=== PATIENT | female | born 1950 | race Caucasian/White ===

== ENCOUNTER 2017-12-05 11:38 | Outpatient (CLI) | payer MEDICARE, BC ==
[2017-12-05 18:02] LABS: BASOPHILS % (AUTO) 0.9 %; EOSINOPHILS # (AUTO) 0.1 10^3/uL (0.0-0.7); EOSINOPHILS % (AUTO) 2.6 %; HGB - HEMOGLOBIN 10.6 g/dL (12.0-16.0); LYMPHOCYTES # (AUTO) 0.9 10^3/uL (1.5-3.5); MEAN CORPUSCULAR HEMOGLOBIN 27.3 pg (27.0-31.0); MEAN CORPUSCULAR HGB CONC 33.3 g/dL (32.0-36.0); MONOCYTES # (AUTO) 0.5 10^3/uL (0.0-1.0); MONOCYTES % (AUTO) 11.3 %; NEUTROPHILS # (AUTO) 2.8 10^3/uL (1.5-6.6); NEUTROPHILS % (AUTO) 65.2 %; PLT - PLATELET COUNT 108 10^3/uL (130-450); RED CELL DISTRIBUTION WIDTH 14.8 % (12.0-15.0); WHITE BLOOD COUNT 4.3 x10^3/uL (4.8-10.8)
[2017-12-05 18:04] LABS: ALBUMIN 4.2 g/dL (3.2-5.5); ALBUMIN/GLOBULIN RATIO 1.4 (1.0-2.2); BILIRUBIN,TOTAL 0.5 mg/dL (0.2-1.0); CALCIUM 9.2 mg/dL (8.5-10.3); CREATININE 0.9 mg/dL (0.4-1.0); TOTAL PROTEIN 7.2 g/dL (6.7-8.2)
== END 2017-12-05 11:39 | disposition home or self-care (01) ==
LOC: LAB.F 11:38
DX: C54.9 Malignant neoplasm of corpus uteri, unspecified (principal)
CPT/HCPCS: 36415; 80053; 83615; 85025; 86304

== ENCOUNTER 2018-01-03 13:29 | Outpatient (CLI) | payer MEDICARE, BC ==
[2018-01-03 17:58] LABS: ALBUMIN 3.6 g/dL (3.2-5.5); BILIRUBIN,TOTAL 0.3 mg/dL (0.2-1.0); CALCIUM 9.2 mg/dL (8.5-10.3); CREATININE 0.9 mg/dL (0.4-1.0); TOTAL PROTEIN 7.2 g/dL (6.7-8.2)
== END 2018-01-03 13:30 | disposition home or self-care (01) ==
LOC: LAB.F 13:29
PROVIDERS: ATTEND Specialist
DX: C54.9 Malignant neoplasm of corpus uteri, unspecified (principal)
CPT/HCPCS: 36415; 80053; 83615; 85025; 86304

== ENCOUNTER 2018-02-15 16:28 | Outpatient (CLI) | payer MEDICARE, BC ==
--- NOTE | 2018-02-15 17:21 | XRAY Report ---
Procedure Date: 02/15/2018 Accession Number: [id number] / [id number] Procedure: XR - Chest 2 View X-Ray CPT Code: 00219 FULL RESULT: EXAM: CHEST RADIOGRAPHY EXAM DATE: 02/15/2018 04:40 PM. CLINICAL HISTORY: Cough. COMPARISON: None. TECHNIQUE: 2 views. FINDINGS: Lungs/Pleura: There are patchy opacities within the lungs. There are bilateral pleural effusions. There is no evidence of pneumothorax. Mediastinum: Heart size is within normal limits. There is thoracic aortic tortuosity. Other: None. IMPRESSION: 1. There are patchy opacities within the periphery of the lungs. Differential considerations include infectious pneumonia, eosinophilic pneumonia, or organizing pneumonia. CT could be used for further evaluation as indicated. 2. There are bilateral pleural effusions. 3. There is no evidence of pneumothorax. RADIA
== END 2018-02-15 16:29 | disposition home or self-care (01) ==
LOC: DI 16:28
PROVIDERS: ATTEND Nurse Practitioner Family
DX: R91.8 Other nonspecific abnormal finding of lung field (principal); J90 Pleural effusion, not elsewhere classified
CPT/HCPCS: 71046

== ENCOUNTER 2018-03-07 11:03 | Emergency (ER) | payer MEDICARE, BC ==
--- NOTE | 2018-03-07 13:29 | ED Physician Documentation ---
PD HPI DYSPNEA - Stated complaint Stated Complaint: SOA,COUGHING UP PHLEM, - Chief complaint Chief Complaint: Resp - History obtained from History obtained from: Patient, Family (), Other (records review) - History of Present Illness Timing - onset: Other (This is a 67-year-old and has been on chemotherapy for the last 4 years. A year ago she had UTI with sepsis and a prolonged hospitalization. 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 She was on a variety of antibiotics, there was initial one which they do not remember, than steroids, then Augmentin, now 3 weeks. She has has a cough productive of clear sputum and shortness of breath with exertion but no orthopnea and increased pedal edema. For the last 3 weeks she has been on Levaquin, at that time, she had a chest x-ray here showing patchy opacities within the periphery of the lungs with a wide differential diagnosis and she also had bilateral pleural effusions. 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 - Social History Does the pt smoke?: No Does the pt drink ETOH?: No Does the pt have substance abuse?: No - Family History Family history: reports: Non contributory PD ED PE NORMAL - Vitals Vital signs reviewed: Yes (Tachycardic) - General General: Alert and oriented X 3, No acute distress - HEENT HEENT: PERRL, EOMI - Neck Neck: Supple, no meningeal sign, No bony TTP - Cardiac Cardiac: RRR, No murmur - Respiratory Respiratory: No respiratory distress, Other (Coarse crackles throughout especially the bases.) - Abdomen Abdomen: Soft, Non tender - Rectal Rectal: Other (Dark but guaiac neg stool) - Back Back: No CVA TTP, No spinal TTP - Derm Derm: Normal color, Warm and dry - Extremities Extremities: No calf tenderness / cord, Other (2-3+ pitting pedal edema which is symmetric) - Neuro Neuro: Alert and oriented X 3, Normal speech Results - Vitals Vitals: Vital Signs - 24 hr 03/07/18 03/07/18 03/07/18 11:08 13:51 15:26 Temperature 36.0 C L Heart Rate 119 H 115 H 90 Respiratory 20 18 22 Rate Blood Pressure 141/112 H 151/84 H 166/89 H O2 Saturation 97 99 100 03/07/18 03/07/18 03/07/18 16:13 16:39 16:41 Temperature Heart Rate 118 H 101 H 97 Respiratory 22 24 22 Rate Blood Pressure 168/90 H 153/87 H 152/81 H O2 Saturation 98 97 96 Oxygen O2 Source Room air - EKG (time done) 1110 Rate: Rate (enter#) (120) Rhythm: Sinus tachycardia (with PACs) [place]: Normal Intervals: Normal ME QRS: Normal Computer interpretation: Agree with computer 1618 Rate: Rate (enter#) (116) Rhythm: Sinus tachycardia [place]: Normal Intervals: Normal ME QRS: Normal Ischemia: Non specific changes Computer interpretation: Agree with computer - Labs Labs: Laboratory Tests 03/07/18 03/07/18 03/07/18 15:15 15:15 15:15 WBC 4.7 L RBC 2.92 L Hgb 6.8 L* Hct 21.1 L MCV 72.5 L MCH 23.3 L MCHC 32.1 RDW 21.1 H Plt Count 148 MPV 7.3 L Neut # (Auto) 3.4 Lymph # (Auto) 0.7 L [place] # (Auto) 0.5 Eos # (Auto) 0.1 Baso # (Auto) 0.0 Absolute Nucleated RBC 0.00 Nucleated RBC % 0.0 Manual Slide Review Indicated WBC Morphology NORMAL APPEARANCE Platelet Estimate NORMAL (130-450,000) Platelet Morphology NORMAL APPEARANCE RBC Morph Micro Appear SPHEROCYTES Sodium 134 L Potassium 3.0 L Chloride 101 Carbon Dioxide 22 Anion Gap 11.0 BUN 20 Creatinine 1.1 H Estimated GFR (MDRD) 49 L Glucose 98 Calcium 8.7 Total Bilirubin 0.5 AST 32 ALT 25 Alkaline Phosphatase 59 Total Creatine Kinase 72 CK-MB (CK-2) 3.0 Troponin I 0.65 H* B-Natriuretic Peptide Total Protein 6.4 L Albumin 2.7 L Globulin 3.7 Albumin/Globulin Ratio 0.7 L Lipase 14 L 03/07/18 15:15 WBC RBC Hgb Hct MCV MCH MCHC RDW Plt Count MPV Neut # (Auto) Lymph # (Auto) [place] # (Auto) Eos # (Auto) Baso # (Auto) Absolute Nucleated RBC Nucleated RBC % Manual Slide Review WBC Morphology Platelet Estimate Platelet Morphology RBC Morph Micro Appear Sodium Potassium Chloride Carbon Dioxide Anion Gap BUN Creatinine Estimated GFR (MDRD) Glucose Calcium Total Bilirubin AST ALT Alkaline Phosphatase Total Creatine Kinase CK-MB (CK-2) Troponin I B-Natriuretic Peptide 870 H Total Protein Albumin Globulin Albumin/Globulin Ratio Lipase - Rads (name of study) CT Chest Radiology: EMP read contemporaneously (Bilateral alveolar peripheral patchy consolidation which could be BOOPs, bronchopneumonia, drug reaction or interstitial pneumonia. Very small left and trace right pleural effusions and some mild bronchiectasis.) Procedures - General procedure General procedure: She was difficult for vascular access, I personally casandra her blood using real- time ultrasound guidance from the right AC. Later when her labs were resulted it was clear that she would need IV access, I tried and failed in the right upper extremity. I was able to place a 20-gauge IV in the right external jugular after ChloraPrep which casandra and flushed well. PD MEDICAL DECISION MAKING - ED course ED course: This is a 68-year-old in the setting of chemotherapy treatment for cancer and has failed outpatient treatment with antibiotics with CT as shown with wide differential diagnosis could be a bacterial pneumonia, Boop. Lab work is notable for low hemoglobin, guaiac negative. She also has an indeterminant troponin. Given the complex nature of her problems and potential need for multispecialty input including cardiology and pulmonology which we do not have available here I called [facility] for potential transfer at 4:20 PM. She was accepted by Dr. Saab the hospitalist there at [facility]. She does want us to do blood cultures which we will try and get, cefepime and vancomycin were ordered at her request. She does need blood before she is transferred. Cobras were completed. The family was agreeable. - Sepsis Event Vital Signs: Vital Signs - 24 hr 03/07/18 03/07/18 03/07/18 11:08 13:51 15:26 Temperature 36.0 C L Heart Rate 119 H 115 H 90 Respiratory 20 18 22 Rate Blood Pressure 141/112 H 151/84 H 166/89 H O2 Saturation 97 99 100 03/07/18 03/07/18 03/07/18 16:13 16:39 16:41 Temperature Heart Rate 118 H 101 H 97 Respiratory 22 24 22 Rate Blood Pressure 168/90 H 153/87 H 152/81 H O2 Saturation 98 97 96 Oxygen O2 Source Room air Departure - Departure Disposition: 02 Transfer Acute Care Hosp Clinical Impression: NSTEMI (non-ST elevated myocardial infarction) Pneumonia Qualifiers: Pneumonia type: due to unspecified organism Laterality: bilateral Lung location : unspecified part of lung Qualified Code(s): J18.9 - Pneumonia, unspecified organism Anemia Qualifiers: Anemia type: unspecified type Qualified Code(s): D64.9 - Anemia, unspecified Condition: Serious
--- NOTE | 2018-03-07 14:03 | CT Report ---
Procedure Date: 03/07/2018 Accession Number: [id number] / [id number] Procedure: CT - Chest W/O CPT Code: FULL RESULT: EXAM: CT CHEST EXAM DATE: 03/07/2018 01:50 PM. CLINICAL HISTORY: Abn chest xray cough fever. COMPARISONS: None. TECHNIQUE: Routine helical CT imaging was performed through the chest. IV contrast: None. Reconstructions: Coronal and sagittal. In accordance with CT protocol optimization, one or more of the following dose reduction techniques were utilized for this exam: automated exposure control, adjustment of mA and/or KV based on patient size, or use of iterative reconstructive technique. FINDINGS: Lungs/Pleura: There is a symmetric pattern of bilateral peribronchovascular consolidation. There are peripheral air bronchograms. There are adjacent groundglass densities. There is a component of architectural distortion with mild bronchiectasis in the lingula and right lower lobe. There is a very small left and trace right pleural effusion. Mediastinum: The heart size is normal. There is no pericardial effusion. No mediastinal lymphadenopathy. Bones: Unremarkable. Visualized Abdomen: Unremarkable. Other: None. IMPRESSION: 1. Bilateral alveolar peripheral patchy consolidation. Differential diagnosis includes bilateral bronchopneumonia, bronchiolitis obliterans organizing pneumonia, drug reaction or acute interstitial pneumonia. 2. Very small left and trace right pleural effusion. 3. A mild amount of bronchiectasis is present RADIA
[2018-03-07 15:31] LABS: BASOPHILS % (AUTO) 0.7 %; EOSINOPHILS # (AUTO) 0.1 10^3/uL (0.0-0.7); EOSINOPHILS % (AUTO) 1.3 %; LYMPHOCYTES # (AUTO) 0.7 10^3/uL (1.5-3.5); LYMPHOCYTES % (AUTO) 14.2 %; MEAN CORPUSCULAR HEMOGLOBIN 23.3 pg (27.0-31.0); MEAN CORPUSCULAR HGB CONC 32.1 g/dL (32.0-36.0); MEAN CORPUSCULAR VOLUME 72.5 fL (81.0-99.0); MEAN PLATELET VOLUME 7.3 fL (7.9-10.8); MONOCYTES # (AUTO) 0.5 10^3/uL (0.0-1.0); MONOCYTES % (AUTO) 10.3 %; NEUTROPHILS # (AUTO) 3.4 10^3/uL (1.5-6.6); NEUTROPHILS % (AUTO) 73.5 %; PLT - PLATELET COUNT 148 10^3/uL (130-450); RED BLOOD COUNT 2.92 10^6/uL (4.20-5.40); RED CELL DISTRIBUTION WIDTH 21.1 % (12.0-15.0); WHITE BLOOD COUNT 4.7 x10^3/uL (4.8-10.8)
[2018-03-07 15:37] LABS: HGB - HEMOGLOBIN 6.8 g/dL (12.0-16.0)
[2018-03-07 15:38] LABS: ALBUMIN 2.7 g/dL (3.2-5.5); ALBUMIN/GLOBULIN RATIO 0.7 (1.0-2.2); BILIRUBIN,TOTAL 0.5 mg/dL (0.2-1.0); CALCIUM 8.7 mg/dL (8.5-10.3); CREATININE 1.1 mg/dL (0.4-1.0); TOTAL PROTEIN 6.4 g/dL (6.7-8.2)
[2018-03-07 15:50] LABS: PLATELET ESTIMATE, MANUAL NORMAL (130-450,000) (NORMAL); PLATELET MORPHOLOGY NORMAL APPEARANCE (NORMAL)
[2018-03-07] MEDS ORDERED: ASPIRIN CHEW 81 MG TABLET PO STA (16:14)
[2018-03-07] MEDS ORDERED: METOPROLOL 5 MG/5 ML VIAL IVP STA (16:14)
[2018-03-07] MEDS ORDERED: POTASSIUM BICARB 25 MEQ TABLET PO STA (16:38)
[2018-03-07] MEDS ORDERED: VANCOMYCIN INJ 1 GM in SODIUM CHLORIDE 0.9% 500 ML IV STA (16:39)
[2018-03-07] MEDS ORDERED: CEFEPIME 2 GM in SODIUM CHLORIDE 0.9% MINIBAG 100 ML IV STA (16:39)
[2018-03-07 18:01] VITALS: BP 167/86
[2018-03-07 22:51] LABS: TROPONIN I 0.65 ng/mL (<0.49)
== END 2018-03-07 18:20 | disposition short-term general hospital (02) ==
LOC: ED 11:03
DX: I21.4 Non-ST elevation (NSTEMI) myocardial infarction (principal); J18.9 Pneumonia, unspecified organism; D64.9 Anemia, unspecified; R00.0 Tachycardia, unspecified; C54.1 Malignant neoplasm of endometrium; Z92.21 Personal history of antineoplastic chemotherapy
CPT/HCPCS: 36415; 71250; 80053; 82550; 82553; 83690; 83880; 84484; 85025; 86850; 86900; 86901; 86920; 87040; 93005; 96365; 96366; 96375; 99284; A9270; J3370; P9016

== ENCOUNTER 2018-03-07 18:24 | Outpatient (CLI) | payer MEDICARE, BC | END 2018-03-07 18:25 | disposition short-term general hospital (02) | LOC: EMS 18:24 | PROVIDERS: ATTEND Surgery | DX: I21.4 Non-ST elevation (NSTEMI) myocardial infarction (principal); R06.00 Dyspnea, unspecified; R05 Cough | CPT/HCPCS: A0170; A0425; A0426 ==

== ENCOUNTER 2018-05-28 11:29 | Outpatient (CLI) | payer MEDICARE, BC | END 2018-05-28 11:30 | disposition home or self-care (01) | LOC: DI 11:29 | PROVIDERS: ATTEND Internal Medicine Cardiovascular Disease | DX: I50.9 Heart failure, unspecified (principal) | CPT/HCPCS: 93306 ==

== ENCOUNTER 2019-04-03 11:49 | Inpatient (IN) | payer MEDICARE, BC ==
[2019-04-03] MEDS ORDERED: SODIUM CHLORIDE 0.9% 1,000 ML IV ONE ×2 (13:28→15:50)
--- NOTE | 2019-04-03 13:44 | ED Physician Documentation ---
History of Present Illness - Stated complaint Stated Complaint: FEMALE - Chief complaint Chief Complaint: General - History obtained from History obtained from: Patient, Family () - Treatment prior to arrival Treatment prior to arrival: doxycycline - Additonal information Additional information: The patient is a 69-year-old female who presents with generalized weakness and decreased appetite. History is obtained mostly from her because both he and the patient prefer that he do the talking. He reports that 10 days ago she was diagnosed with a "raging UTI." She was treated with ciprofloxacin for 1 week with no improvement of her symptoms. She was seen by her Oncologist, Dr. Mauricio, 3 days ago when it was found that the urine culture revealed resistance to ciprofloxacin. She was changed to doxycycline at that time. She has been on doxycycline for the past 3 days, but her is concerned that she is not improving. She denies fever, abdominal pain, nausea, vomiting, or dysuria. She has chronic shortness of breath, and underwent thoracentesis for right pleural effusion at [facility] two weeks ago. She has history of endometrial cancer with liver metastases, for which she is on chemotherapy. She has history of DVT diagnosed in January 2019, after which she underwent IVC filter placement. She is currently on Xarelto. Review of Systems Constitutional: reports: Fatigue. denies: Fever Nose: denies: Congestion Throat: denies: Sore throat Cardiac: denies: Chest pain / pressure Respiratory: reports: Dyspnea (Chronically). denies: Cough GI: denies: Abdominal Pain, Nausea, Vomiting : denies: Dysuria Skin: denies: Rash Musculoskeletal: denies: Back pain Neurologic: reports: Generalized weakness. 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) - Past Surgical History Cardiovascular: Coronary stent - Present Medications Home Medications: Ambulatory Orders Medication Instructions Recorded Confirmed Everolimus [Afinitor] 2.5 mg PO DAILY 03/07/18 04/01/19 Furosemide [Lasix] 20 mg PO DAILY 03/07/18 04/01/19 Letrozole 2.5 mg PO DAILY 03/07/18 04/01/19 Losartan [Cozaar] 100 mg PO DAILY 03/07/18 04/01/19 metFORMIN [Glucophage] 500 mg PO BID 03/07/18 04/01/19 - Allergies Allergies/Adverse Reactions: Allergies Allergy/AdvReac Type Severity Reaction Status Date / Time No Known Drug Allergies Allergy Verified 04/03/19 11:58 - Living Situation Living Situation: reports: With spouse/s.o. - Social History Does the pt smoke?: No Smoking Status: Never smoker Does the pt drink ETOH?: No Does the pt have substance abuse?: No PD ED PE NORMAL - Vitals Vital signs reviewed: Yes (Mildly tachycardic.) - General General: Alert and oriented X 3, Other (Chronically debilitated appearing.) - HEENT HEENT: Atraumatic, EOMI, Pharynx benign - Neck Neck: No adenopathy, No JVD - Cardiac Cardiac: RRR - Respiratory Respiratory: No respiratory distress, Other (Decreased breath sounds at the right base.) - Abdomen Abdomen: Soft, Non tender - Back Back: No CVA TTP - Derm Derm: No rash - Extremities Extremities: No edema, No calf tenderness / cord - Neuro Neuro: Alert and oriented X 3, No motor deficit, Other (Generalized weakness, without focal motor deficit detected.) Results - Vitals Vitals: Vital Signs - 24 hr 04/03/19 04/03/19 04/03/19 11:52 14:27 16:30 Temperature 36.7 C Heart Rate 112 H 98 85 Respiratory 18 15 25 H Rate Blood Pressure 103/71 114/77 115/71 O2 Saturation 93 99 95 Oxygen O2 Source Room air - Labs Labs: Laboratory Tests 04/03/19 04/03/19 04/03/19 14:20 14:20 14:20 WBC 12.8 H RBC 3.63 L Hgb 11.4 L Hct 35.6 L MCV 98.1 MCH 31.4 H MCHC 32.0 RDW 17.8 H Plt Count 69 L MPV 12.3 H Neut # (Auto) 11.5 H Lymph # (Auto) 0.4 L [place] # (Auto) 0.8 Eos # (Auto) 0.0 Baso # (Auto) 0.0 Absolute Nucleated RBC 0.00 Nucleated RBC % 0.0 Sodium 134 L Potassium 4.0 Chloride 100 L Carbon Dioxide 20 L Anion Gap 14.0 H BUN 53 H Creatinine 1.7 H Estimated GFR (MDRD) 30 L Glucose 137 H Lactic Acid 1.7 Calcium 8.9 Total Bilirubin 0.5 AST 69 H ALT 53 Alkaline Phosphatase 445 H Total Protein 6.5 L Albumin 2.9 L Globulin 3.6 Albumin/Globulin Ratio 0.8 L Lipase 23 Urine Color Urine Clarity Urine pH Ur Specific [place] Urine Protein Urine Glucose (UA) Urine Ketones Urine Occult Blood Urine Nitrite Urine Bilirubin Urine Urobilinogen Ur Leukocyte Esterase Urine RBC Urine WBC Ur Squamous Epith Cells Urine Bacteria Ur Microscopic Review Urine Culture Comments 04/03/19 15:12 WBC RBC Hgb Hct MCV MCH MCHC RDW Plt Count MPV Neut # (Auto) Lymph # (Auto) [place] # (Auto) Eos # (Auto) Baso # (Auto) Absolute Nucleated RBC Nucleated RBC % Sodium Potassium Chloride Carbon Dioxide Anion Gap BUN Creatinine Estimated GFR (MDRD) Glucose Lactic Acid Calcium Total Bilirubin AST ALT Alkaline Phosphatase Total Protein Albumin Globulin Albumin/Globulin Ratio Lipase Urine Color YELLOW Urine Clarity CLOUDY Urine pH 6.0 Ur Specific [place] 1.020 Urine Protein TRACE Urine Glucose (UA) NEGATIVE Urine Ketones NEGATIVE Urine Occult Blood SMALL H Urine Nitrite NEGATIVE Urine Bilirubin NEGATIVE Urine Urobilinogen 0.2 (NORMAL) Ur Leukocyte Esterase NEGATIVE Urine RBC 0-5 Urine WBC 6-10 H Ur Squamous Epith Cells RARE Squamous Urine Bacteria Many H Ur Microscopic Review INDICATED Urine Culture Comments INDICATED Procedures - General procedure General procedure: Right EJ IV placement: Because of unsuccessful attempts at peripheral IV access by the nurses, and history of similar difficulty getting IV access in the past, I was asked to place an IV. The patient does have a good right external jugular vein, which I was able to cannulate without difficulty under sterile technique using an 18-gauge Angiocath. PD MEDICAL DECISION MAKING - ED course Complexity details: reviewed old records, reviewed results, re-evaluated patient, considered differential, d/w patient, d/w family, d/w optimization consultant ED course: The patient's presentation is significant for dehydration associated with poor oral intake, and partially treated urinary tract infection. Her BUN and creatinine are elevated at 53 and 1.7, with her recent previous BUN and creatinine being 42 and 1.6. She has been treated with outpatient antibiotic therapy for urinary tract infection, including one week of Cipro, to which the organism was resistant, followed by the last 3 days on doxycycline. With her history of endometrial cancer, she is scheduled for further chemotherapy on Sunday, 4 days from now. Treatment in the emergency department included administration of normal saline 1 L IV and ceftriaxone 1 g IV. I discussed her condition with her oncologist, Tatyana Mauricio, who suggests that she be hospitalized for rehydration and IV antibiotic therapy in an effort to improve her medical condition and thrombocytopenia heading into planned chemotherapy 4 days from now. I discussed her condition with Dr. Baldwin who accepts her for further evaluation and treatment. Departure - Departure Disposition: [facility] DC/Xfer Clinical Impression: Dehydration, Endometrial cancer, Thrombocytopenia UTI (urinary tract infection) Qualifiers: Urinary tract infection type: acute cystitis Hematuria presence: without hematuria Qualified Code(s): N30.00 - Acute cystitis without hematuria Condition: Stable Discharge Date/Time: 04/03/19 19:34
[2019-04-03 14:30] LABS: BASOPHILS % (AUTO) 0.2 %; HGB - HEMOGLOBIN 11.4 g/dL (12.0-16.0); LYMPHOCYTES # (AUTO) 0.4 10^3/uL (1.5-3.5); LYMPHOCYTES % (AUTO) 2.7 %; MEAN CORPUSCULAR HEMOGLOBIN 31.4 pg (27.0-31.0); MEAN CORPUSCULAR VOLUME 98.1 fL (81.0-99.0); MEAN PLATELET VOLUME 12.3 fL (7.9-10.8); MONOCYTES # (AUTO) 0.8 10^3/uL (0.0-1.0); MONOCYTES % (AUTO) 6.5 %; NEUTROPHILS # (AUTO) 11.5 10^3/uL (1.5-6.6); NEUTROPHILS % (AUTO) 89.7 %; PLT - PLATELET COUNT 69 10^3/uL (130-450); RED BLOOD COUNT 3.63 10^6/uL (4.20-5.40); RED CELL DISTRIBUTION WIDTH 17.8 % (12.0-15.0); WHITE BLOOD COUNT 12.8 x10^3/uL (4.8-10.8)
[2019-04-03 14:44] LABS: ALBUMIN 2.9 g/dL (3.2-5.5); ALBUMIN/GLOBULIN RATIO 0.8 (1.0-2.2); BILIRUBIN,TOTAL 0.5 mg/dL (0.2-1.0); CALCIUM 8.9 mg/dL (8.5-10.3); CREATININE 1.7 mg/dL (0.4-1.0); TOTAL PROTEIN 6.5 g/dL (6.7-8.2)
[2019-04-03 15:23] LABS: BILIRUBIN,URINE NEGATIVE (NEGATIVE); GLUCOSE, URINE (UA) NEGATIVE (NEGATIVE); KETONES,URINE (UA) NEGATIVE (NEGATIVE); LEUKOCYTE ESTERASE, URINE NEGATIVE (NEGATIVE); NITRITE,URINE NEGATIVE (NEGATIVE); OCCULT BLOOD,URINE SMALL (NEGATIVE); PROTEIN,URINE TRACE mg/dL (NEGATIVE); UROBILINOGEN,URINE 0.2 (NORMAL) E.U./dL (NORMAL)
[2019-04-03 15:33] LABS: CLARITY,URINE CLOUDY (CLEAR)
[2019-04-03 15:36] LABS: BACTERIA,URINE Many /HPF (None Seen); RBC,URINE 0-5 /HPF (0-5); SQUAMOUS EPITHELIAL CELL,UR RARE Squamous (<= Few)
[2019-04-03] MEDS ORDERED: cefTRIAXone 1 GM in SODIUM CHLORIDE 0.9% MINIBAG 100 ML IV STA (15:48)
[2019-04-03] MEDS ORDERED: PROCHLORPERAZINE 10 MG/2 ML VIAL IVP PRN (17:08)
[2019-04-03] MEDS ORDERED: HYDROmorphone 0.5 MG/0.5 ML SYRINGE IVP PRN (17:08)
[2019-04-03] MEDS ORDERED: ACETAMINOPHEN 325 MG TABLET PO PRN (17:08)
[2019-04-03] MEDS: DEXTROSE 5%-0.9% NACL 1,000 ML IV SCH (19:32)
--- NOTE | 2019-04-03 20:02 | HISTORY & PHYSICAL EXAMINATION ---
DATE OF SERVICE: 04/03/2019 Physician: Silvina Baldwin MD HISTORY OF PRESENT ILLNESS: This is a 69-year-old white female who has a history of endometrial cancer for which she has been getting chemotherapy. There is also a history of hypertension, DVT twice with an IV filter and Xarelto use, coronary artery disease with NSTEMI in March 2018 for which she received a stent. Patient was in [facility] getting a pleural effusion thoracentesis done about 2 weeks ago. She was diagnosed there with a UTI. She was started on Cipro. She went to see her Oncologist who found that the urine culture had bacterial growth that was resistant to Cipro, and she was changed to Doxycycline, which the bacteria was sensitive to, that she has been on now for approximately 3 days. She has continued to have very poor appetite, not even forcing herself to drink, has marked weakness and mostly is in bed all day, is too weak to get dressed or do other ADLs, and was brought to the emergency room by her today. Patient denies any fever, nausea, vomiting, diarrhea or dysuria. She has mild chronic shortness of breath, which has not changed. The emergency room spoke to her Oncologist, Dr. Mauricio, who advised that she be admitted for IV fluids and IV antibiotics, since there is a plan to proceed with an upcoming course of chemotherapy 04/07/2019, which is in 5 days. PAST MEDICAL HISTORY 1. Endometrial cancer with metastasis to the liver, on chemotherapy. Recent chemotherapy resulted in pancytopenia. 2. History of coronary artery disease with NSTEMI in 03/2018 and she received a stent. 3. Recent pleural effusion, tapped at 2 weeks ago. 4. Hypertension. 5. Deep venous thrombosis, twice, with vena caval filter and on Xarelto. 6. History of Pneumocystis carinii pneumonia. 7. History of prior UTI, and this recent UTI diagnosed 14 days ago, which she has had incomplete treatment of because of resistance to the antibiotic that was chosen. ALLERGIES: NONE. MEDICATIONS 1. Aspirin 81 mg daily 2. Lipitor 40 mg qhs 3. Lisonopril 10 mg daily 4. Cimetidine 20 mg daily 5. Trim/HCTZ 25 mg daily 6. Toprol 50 mg daily 7. Prednisone 10 mg daily 8. Xarelto 15 mg daily in am 9. recent Doxycycline 100 mg bid 10. Many vitamin supplements: vit C, vit B12, Folate, Iron, CBD tincture, vit B6, Biotin, Pantothenic acid, Magnesium 500 mg daily, Calcium 500 mg daily, Malic acid, and MOV with minerals FAMILY HISTORY: Noncontributory. SOCIAL HISTORY: Patient is a nonsmoker, who never smoked, drinks rare alcohol (2 wine/week). Lives with her . REVIEW OF SYSTEMS: She used to have an Oncologist in [place] who prescribed chemo based on killing analysis of her cancer specimens, but they currently live in [place], [place] and she more recently had an [place] Oncologist and now [address] Mauricio of [facility]. A comprehensive review of systems was done and the pertinent positives are listed. The rest are negative. PHYSICAL EXAMINATION GENERAL: Chronically ill-appearing white female. VITAL SIGNS: Blood pressure 115/71, pulse 85, but in the emergency room it was in sinus tachycardia at 112, afebrile, room air saturation 99%. HEENT: Reveals dry oral mucosa. She appears pale and tired. NECK: Without JVD. LUNGS: Diminished breath sounds at the right base, but otherwise clear and no wheezing. HEART: Distant heart sounds. No audible murmur. ABDOMEN: Soft, nontender. Normal bowel sounds. No organomegaly. No tenderness. EXTREMITIES: 1+ ankle edema. No clubbing or cyanosis. NEUROLOGIC: Grossly intact. LABORATORY DATA: Sodium 134, potassium 4.0, anion gap 14, BUN 53, creatinine 1.7. Her usual creatinine is 1.1. Lactic acid 1.7, glucose 137, AST 69, ALT 53, alkaline phosphatase 445. Albumin 2.9. Lipase normal. White blood count 12.8 with a left shift of neutrophils 11.5%. Hemoglobin is 11.5 with MCV 98, platelet count low at 69. No INR was done. Urinalysis shows small occult blood, high white blood cells and many bacteria. No chest x-ray was done. No EKG was done. An Echo done 1 year ago shows an LVEF mildly depressed at 50%, mild-moderate aortic insufficiency and normal PA pressure. IMPRESSION/DIAGNOSES 1. Urinary tract infection, under treated by the previous oral antibiotics. 2. Acute kidney injury. 3. Endometrial cancer. 4. Pancytopenia from chemotherapy. 5. Coronary artery disease with an myocardial infarction 1 year ago with coronary stenting. 6. History of hypertension. 7. History of deep venous thrombosis of lower extremities. 8. Pleural effusion, recent, with etiology unknown. 9. Weakness, probably multifactorial. PLAN: Admit the patient to a medical/surgical bed. Urine culture was resent when in the ER. Obtain blood culture if she spikes a fever. IV ceftriaxone was started in the ER and will be continued by IV, then adjusted to focused antibiotics based on identification and sensitivities. Begin IV hydration using D5 NS. Start a full liquid diet and advance the diet as her appetite improves. Follow her BMP and CBC daily. Continue with her home medications other than the Lasix. The INR will be inaccurate/unreliable in a patient on a DOAC, therefore not needed. Obtain the microbiology result of the abnormal urine culture from the other hospital. Obtain the pathology report from the thoracentesis from to determine if there were malignant cells or an infection, which may help guide management. CODE STATUS: FULL CODE. DEEP THROMBOSIS PROPHYLAXIS: SCDs and RONI stockings. ATTESTATION: The patient is expected to be discharged or transferred to another facility within 96 hours: Yes. TD: 04/03/2019 18:36 [place]
[2019-04-03] MEDS: INSULIN ASPART 300 UNIT/3 ML PEN SUBQ SCH (21:48)
[2019-04-03] MEDS: ATORVASTATIN 40 MG TABLET PO SCH (21:48)
[2019-04-04] MEDS: SODIUM CHLORIDE FLUSH 0.9% 10 ML SYRINGE IVP SCH ×4 (00:07→17:52)
[2019-04-04 04:55] LABS: BASOPHILS % (AUTO) 0.2 %; EOSINOPHILS % (AUTO) 0.4 %; HGB - HEMOGLOBIN 9.5 g/dL (12.0-16.0); LYMPHOCYTES # (AUTO) 0.6 10^3/uL (1.5-3.5); LYMPHOCYTES % (AUTO) 6.5 %; MEAN CORPUSCULAR HEMOGLOBIN 30.9 pg (27.0-31.0); MEAN CORPUSCULAR HGB CONC 31.8 g/dL (32.0-36.0); MEAN CORPUSCULAR VOLUME 97.4 fL (81.0-99.0); MEAN PLATELET VOLUME 11.9 fL (7.9-10.8); MONOCYTES # (AUTO) 0.9 10^3/uL (0.0-1.0); MONOCYTES % (AUTO) 10.1 %; NEUTROPHILS # (AUTO) 7.3 10^3/uL (1.5-6.6); NEUTROPHILS % (AUTO) 81.9 %; PLT - PLATELET COUNT 50 10^3/uL (130-450); RED BLOOD COUNT 3.07 10^6/uL (4.20-5.40); RED CELL DISTRIBUTION WIDTH 17.6 % (12.0-15.0)
[2019-04-04 05:09] LABS: ALBUMIN 2.2 g/dL (3.2-5.5); ALBUMIN/GLOBULIN RATIO 0.8 (1.0-2.2); BILIRUBIN,TOTAL 0.7 mg/dL (0.2-1.0); CREATININE 1.3 mg/dL (0.4-1.0); TOTAL PROTEIN 5.1 g/dL (6.7-8.2)
[2019-04-04] MEDS: DEXTROSE 5%-0.9% NACL 1,000 ML IV SCH ×2 (05:21→16:25)
[2019-04-04] MEDS: PANTOPRAZOLE 40 MG VIAL IVP SCH (06:07)
[2019-04-04] MEDS ORDERED: POTASSIUM CHLORIDE 20 MEQ TABLET PO SCH (06:43)
[2019-04-04] MEDS: INSULIN ASPART 300 UNIT/3 ML PEN SUBQ SCH (08:22)
[2019-04-04] MEDS: METOPROLOL SUCCINATE 50 MG TABLET PO SCH (09:23)
[2019-04-04] MEDS: cefTRIAXone 1 GM VIAL IVP SCH (09:23)
[2019-04-04] MEDS: POLYETHYLENE GLYCOL 3350 17 GM PACKET PO SCH (09:23)
[2019-04-04] MEDS: predniSONE 5 MG TABLET PO SCH (09:23)
[2019-04-04] MEDS: LOSARTAN 50 MG TABLET PO SCH ×2 (09:23→09:33)
[2019-04-04] MEDS: LETROZOLE 2.5 MG PO SCH (09:26)
[2019-04-04] MEDS: EVEROLIMUS PO SCH (09:26)
[2019-04-04] MEDS ORDERED: POTASSIUM CHLOR 10 MEQ/100 ML 10 MEQ/100 ML BAG IV SCH (12:00)
--- NOTE | 2019-04-04 13:05 | PROVIDER PROGRESS NOTE ---
Assessment/Plan - Problem List (1) UTI (urinary tract infection) Qualifiers: Urinary tract infection type: acute cystitis Hematuria presence: without hematuria Qualified Code(s): N30.00 - Acute cystitis without hematuria Assessment/Plan: This patient has undertreated bacterial urinary tract infection. I do not have the record from , of the bacteria that was identified or its sensitivities. Her U/A on presentation in the ER yesterday, still showed many bacteria After she had urine culture sent from the ER yesterday, Rocephin IV was started yesterday, and is continued now with this admission. Will attempt to obtain the microbiology report of the abnormal urine culture including ID and sensitivities from the other hospital. Await our urine culture results. (2) Dehydration Assessment/Plan: She was started on iv hydration at admission last evening. I suspect she is rhea ral Liters of fluid behind, since she had no fluid intake for 4 days, as per the history from the . The patient told me yesterday that she simply had no appetite and could not even force herself to drink Continue IV hydration. Follow BMP. A full liquid diet was started, promoting hydration was discussed with the patient, the was present (3) BETO (acute kidney injury) Assessment/Plan: The BUN/creatinine is improved from 59/1.7 at admission yesterday to 39/1.3 today after iv hydration started. Continue with this plan. Monitor BMP (4) Hypokalemia Assessment/Plan: Replace Monitor BMP daily. (5) Weakness generalized Assessment/Plan: This is likely multifactorial: From marked dehydration, persistent infection, pancytopenia especially the anemia, underlying malignancy. After 1-2 day of IV fluids, will check orthostatic vital signs and then order PT. (6) Poor appetite Assessment/Plan: Full liquid diet started, will advance as her diet as appetite improves. Will advance diet to soft She may need a nutrition consult for recommendations regarding increased protein and calorie intake (7) Pleural effusion Assessment/Plan: The history obtained yessterday, included information that she had a thoracentesis of a new pleural effusion 2 weeks ago at . The pathology report, protein and Gram stain are not available to me. She is not dyspneic, is able to lie falt without SOB. We will try to obtain the thoracentesis results, as it will guide therapy (8) Hx of essential hypertension Assessment/Plan: Her Lisinopril is on hold due to volume depletion and a low blood pressure even without BP meds (9) Endometrial cancer Assessment/Plan: The notes state that a round of chemotherapy is planned for 04/07/19, managed by Dr. Mauricio of [facility] clinic (10) Pancytopenia due to chemotherapy Assessment/Plan: This was noted by Dr. Mauricio in her note from 04/01/2019. Monitor CBC daily. Transfuse if hemoglobin less than 7 or she becomes symptomatic - Current Meds Current Meds: Current Medications Generic Name Dose Route Start Last Admin Trade Name Freq PRN Reason Stop Dose Admin Atorvastatin Calcium 40 mg 04/03/19 21:00 04/03/19 21:48 Lipitor PO 40 mg QPM JOHN Administration Ceftriaxone Sodium 1 gm 04/04/19 09:00 04/04/19 09:23 Rocephin IVP 1 gm DAILY JOHN Administration Dextrose/Sodium Chloride 1,000 mls @ 100 mls/hr 04/03/19 18:00 04/04/19 05:21 D5ns IV 100 mls/hr .Q10H JOHN Administration Metoprolol Succinate 50 mg 04/04/19 09:00 04/04/19 09:23 Toprol Xl PO 50 mg DAILY JOHN Administration Pantoprazole Sodium 40 mg 04/04/19 07:00 04/04/19 06:07 Protonix IVP 40 mg QDAC JOHN Administration (Everolimus [ 1 each 04/04/19 09:00 04/04/19 09:26 Afinitor] 2.5 Mg) PO Not Given Tab DAILY JOHN (Letrozole [ 1 each 04/04/19 09:00 04/04/19 09:26 Letrozole] 2.5 Mg) PO Not Given Tab DAILY JOHN Polyethylene Glycol 17 gm 04/04/19 09:00 04/04/19 09:23 Miralax PO 17 gm DAILY JOHN Administration Prednisone 10 mg 04/04/19 08:00 04/04/19 09:23 Deltasone PO 10 mg DAILYWM JOHN Administration Sodium Chloride 10 ml 04/04/19 01:00 04/04/19 07:45 Normal Saline Flush 0.9% IVP Not Given 0100,0900,1700 JOHN - Lab Result Fish Bone Diagrams: 04/04/19 04:30 04/04/19 04:30 - Additional Planning My Orders: My Active Orders 04/03/19 17:08 Activity Orders [RC] Q2HR IO [RC] IOSHIFT Initiate Bowel Care Protocol [RC] .protocol Initiate Line Care Protocol [RC] QSHIFT Initiate Personal Care Protoco [RC] .protocol Oxygen Therapy [RC] Routine Vital Signs [RC] 0800,1600,0000 Acetaminophen [Tylenol] 650 mg PO Q4HR PRN HYDROmorphone INJ SYRINGE [Dilaudid Inj Syringe] 0.5 mg IVP Q2H PRN Prochlorperazine Inj [Compazine Inj] 10 mg IVP Q6HR PRN Sodium Chloride Flush 0.9% [Normal Saline Flush 0.9%] 10 ml IVP PRN PRN Code Status [OTHERS] Routine Condition of Patient [OTHERS] Routine DVT Prophylaxis [OTHERS] Routine 04/03/19 17:10 Daily Weight [RC] 0600 IV Insert [RC] .ONCE 04/03/19 17:11 RONI Wright [RC] QSHIFT 04/03/19 17:12 Initiate Line Care Protocol [RC] QSHIFT 04/03/19 18:00 Dextrose 5%-0.9% NaCl [D5ns] 1,000 ml IV 100 mls/hr 04/04/19 01:00 Sodium Chloride Flush 0.9% [Normal Saline Flush 0.9%] 10 ml IVP 0100,0900,1700 04/04/19 07:00 Pantoprazole [Protonix] 40 mg IVP QDAC 04/04/19 09:00 Patient Own Med [Patient Own Medication] 1 each PO DAILY Patient Own Med [Patient Own Medication] 1 each PO DAILY Polyethylene Glycol 3350 [Miralax] 17 gm PO DAILY cefTRIAXone [Rocephin] 1 gm IVP DAILY 04/04/19 11:54 Miscellaenous Nursing Order [RC] ONCE 04/04/19 11:55 Miscellaenous Nursing Order [RC] ONCE 04/04/19 12:00 Potassium Chlor 10 Meq/100 ml [Potassium Chloride] 10 meq in 100 ml IV Q1H 04/05/19 05:00 CBC - COMP BLD CT W/AUTO DIFF [HEME] DAILYLAB CMP [COMPREHENSIVE METABOLIC PANEL] [CHEM] DAILYLAB 04/06/19 05:00 CBC - COMP BLD CT W/AUTO DIFF [HEME] DAILYLAB CMP [COMPREHENSIVE METABOLIC PANEL] [CHEM] DAILYLAB 04/07/19 05:00 CBC - COMP BLD CT W/AUTO DIFF [HEME] DAILYLAB CMP [COMPREHENSIVE METABOLIC PANEL] [CHEM] DAILYLAB Subjective - Subjective Patient Reports: Feeling Better, Resting Comfortably, No Complaints Objective Vital Signs: Vital Signs - 24 hr 04/03/19 04/03/19 04/03/19 14:27 16:30 17:12 Temperature 36.8 C Heart Rate 98 85 Heart Rate [ Brachial] Respiratory 15 25 H Rate Blood Pressure 114/77 115/71 Blood Pressure [Right Brachial artery] O2 Saturation 99 95 04/03/19 04/03/19 04/04/19 18:02 23:56 05:47 Temperature 36.3 C L 36.3 C L Heart Rate 85 87 Heart Rate [ 87 Brachial] Respiratory 22 16 16 Rate Blood Pressure 115/73 Blood Pressure 110/72 [Right Brachial artery] O2 Saturation 97 97 97 04/04/19 07:41 Temperature 36.3 C L Heart Rate Heart Rate [ 87 Brachial] Respiratory 16 Rate Blood Pressure Blood Pressure 113/68 [Right Brachial artery] O2 Saturation 100 Oxygen O2 Source Room air I&O (Last 24 Hrs): Intake and Output Totals x24h 04/02/19 04/03/19 04/04/19 23:59 23:59 23:59 Intake Total 2550 1231.667 Output Total 500 400 Balance 2050 831.667 General: Alert, Oriented x3 HEENT: Mucous membr. moist/pink, Other (Pale) Neck: Supple, No JVD Neuro: Non Focal Cardiovascular: Regular rate, No murmurs Respiratory: No respiratory distress Abdomen: Soft Extremities: No edema - Results Results: Laboratory Results WBC 9.0 x10^3/uL (4.8-10.8) 04/04/19 04:30 RBC 3.07 10^6/uL (4.20-5.40) L 04/04/19 04:30 Hgb 9.5 g/dL (12.0-16.0) L 04/04/19 04:30 Hct 29.9 % (37.0-47.0) L 04/04/19 04:30 MCV 97.4 fL (81.0-99.0) 04/04/19 04:30 MCH 30.9 pg (27.0-31.0) 04/04/19 04:30 MCHC 31.8 g/dL (32.0-36.0) L 04/04/19 04:30 RDW 17.6 % (12.0-15.0) H 04/04/19 04:30 Plt Count 50 10^3/uL (130-450) L 04/04/19 04:30 MPV 11.9 fL (7.9-10.8) H 04/04/19 04:30 Neut # (Auto) 7.3 10^3/uL (1.5-6.6) H 04/04/19 04:30 Lymph # (Auto) 0.6 10^3/uL (1.5-3.5) L 04/04/19 04:30 Lea # (Auto) 0.9 10^3/uL (0.0-1.0) 04/04/19 04:30 Eos # (Auto) 0.0 10^3/uL (0.0-0.7) 04/04/19 04:30 Baso # (Auto) 0.0 10^3/uL (0.0-0.1) 04/04/19 04:30 Absolute Nucleated RBC 0.00 x10^3/uL 04/04/19 04:30 Nucleated RBC % 0.0 /100WBC 04/04/19 04:30 Sodium 138 mmol/L (135-145) 04/04/19 04:30 Potassium 3.4 mmol/L (3.5-5.0) L 04/04/19 04:30 Chloride 109 mmol/L (101-111) 04/04/19 04:30 Carbon Dioxide 19 mmol/L (21-32) L 04/04/19 04:30 Anion Gap 10.0 (6-13) 04/04/19 04:30 BUN 39 mg/dL (6-20) H 04/04/19 04:30 Creatinine 1.3 mg/dL (0.4-1.0) H 04/04/19 04:30 Estimated GFR (MDRD) 41 (>89) L 04/04/19 04:30 Glucose 121 mg/dL (70-100) H 04/04/19 04:30 POC Whole Bld Glucose 145 mg/dL (70 - 100) H 04/04/19 11:47 Lactic Acid 1.7 mmol/L (0.5-2.2) 04/03/19 14:20 Calcium 8.0 mg/dL (8.5-10.3) L 04/04/19 04:30 Total Bilirubin 0.7 mg/dL (0.2-1.0) 04/04/19 04:30 AST 58 IU/L (10-42) H 04/04/19 04:30 ALT 41 IU/L (10-60) 04/04/19 04:30 Alkaline Phosphatase 336 IU/L (42-121) H 04/04/19 04:30 Total Protein 5.1 g/dL (6.7-8.2) L 04/04/19 04:30 Albumin 2.2 g/dL (3.2-5.5) L 04/04/19 04:30 Globulin 2.9 g/dL (2.1-4.2) 04/04/19 04:30 Albumin/Globulin Ratio 0.8 (1.0-2.2) L 04/04/19 04:30 Lipase 23 U/L (22-51) 04/03/19 14:20 Urine Color YELLOW 04/03/19 15:12 Urine Clarity CLOUDY (CLEAR) 04/03/19 15:12 Urine pH 6.0 PH (5.0-7.5) 04/03/19 15:12 Ur Specific [place] 1.020 (1.002-1.030) 04/03/19 15:12 Urine Protein TRACE mg/dL (NEGATIVE) 04/03/19 15:12 Urine Glucose (UA) NEGATIVE mg/dL (NEGATIVE) 04/03/19 15:12 Urine Ketones NEGATIVE mg/dL (NEGATIVE) 04/03/19 15:12 Urine Occult Blood SMALL (NEGATIVE) H 04/03/19 15:12 Urine Nitrite NEGATIVE (NEGATIVE) 04/03/19 15:12 Urine Bilirubin NEGATIVE (NEGATIVE) 04/03/19 15:12 Urine Urobilinogen 0.2 (NORMAL) E.U./dL (NORMAL) 04/03/19 15:12 Ur Leukocyte Esterase NEGATIVE (NEGATIVE) 04/03/19 15:12 Urine RBC 0-5 /HPF (0-5) 04/03/19 15:12 Urine WBC 6-10 /HPF (0-5) H 04/03/19 15:12 Ur Squamous Epith Cells RARE Squamous (<= Few) 04/03/19 15:12 Urine Bacteria Many /HPF (None Seen) H 04/03/19 15:12 Ur Microscopic Review INDICATED 04/03/19 15:12 Urine Culture Comments INDICATED 04/03/19 15:12
[2019-04-04] MEDS: RIVAROXABAN 15 MG TABLET PO SCH (17:51)
[2019-04-04] MEDS: ATORVASTATIN 40 MG TABLET PO SCH (20:54)
[2019-04-05] MEDS: DEXTROSE 5%-0.9% NACL 1,000 ML IV SCH ×3 (01:36→14:48)
[2019-04-05] MEDS: SODIUM CHLORIDE FLUSH 0.9% 10 ML SYRINGE IVP PRN (06:47)
[2019-04-05] MEDS: PANTOPRAZOLE 40 MG VIAL IVP SCH (06:47)
[2019-04-05 06:58] LABS: BASOPHILS % (AUTO) 0.2 %; EOSINOPHILS # (AUTO) 0.1 10^3/uL (0.0-0.7); EOSINOPHILS % (AUTO) 0.5 %; HGB - HEMOGLOBIN 10.7 g/dL (12.0-16.0); LYMPHOCYTES # (AUTO) 0.8 10^3/uL (1.5-3.5); LYMPHOCYTES % (AUTO) 6.6 %; MEAN CORPUSCULAR HEMOGLOBIN 30.9 pg (27.0-31.0); MEAN CORPUSCULAR HGB CONC 30.5 g/dL (32.0-36.0); MEAN CORPUSCULAR VOLUME 101.4 fL (81.0-99.0); MEAN PLATELET VOLUME 10.9 fL (7.9-10.8); MONOCYTES # (AUTO) 1.1 10^3/uL (0.0-1.0); MONOCYTES % (AUTO) 9.5 %; NEUTROPHILS # (AUTO) 9.8 10^3/uL (1.5-6.6); NEUTROPHILS % (AUTO) 82.2 %; PLT - PLATELET COUNT 45 10^3/uL (130-450); RED BLOOD COUNT 3.46 10^6/uL (4.20-5.40); RED CELL DISTRIBUTION WIDTH 17.8 % (12.0-15.0); WHITE BLOOD COUNT 11.9 x10^3/uL (4.8-10.8)
[2019-04-05 08:35] LABS: ALBUMIN 2.5 g/dL (3.2-5.5); ALBUMIN/GLOBULIN RATIO 0.8 (1.0-2.2); BILIRUBIN,TOTAL 0.6 mg/dL (0.2-1.0); CALCIUM 8.4 mg/dL (8.5-10.3); CREATININE 1.3 mg/dL (0.4-1.0); TOTAL PROTEIN 5.5 g/dL (6.7-8.2)
[2019-04-05] MEDS: predniSONE 5 MG TABLET PO SCH (08:54)
[2019-04-05] MEDS: cefTRIAXone 1 GM VIAL IVP SCH (08:55)
[2019-04-05] MEDS: METOPROLOL SUCCINATE 50 MG TABLET PO SCH (08:59)
[2019-04-05] MEDS ORDERED: PREDNISONE 10 MG PO SCH (09:00)
[2019-04-05] MEDS ORDERED: (Vitamin B Complex [Vitamin B Complex] 1 TAB) PO SCH (09:00)
[2019-04-05] MEDS ORDERED: METOPROLOL SUCCINATE 50 MG TABLET PO SCH (09:00)
[2019-04-05] MEDS: SODIUM CHLORIDE FLUSH 0.9% 10 ML SYRINGE IVP SCH ×3 (09:03→18:58)
[2019-04-05] MEDS: POLYETHYLENE GLYCOL 3350 17 GM PACKET PO SCH (09:04)
[2019-04-05] MEDS: ASCORBIC ACID CHEW 500 MG TABLET PO SCH (09:13)
[2019-04-05] MEDS: CHOLECALCIFEROL 1,000 UNIT TABLET PO SCH (09:13)
[2019-04-05] MEDS: MULTIVITAMIN W/MINERALS TABLET PO SCH (09:13)
[2019-04-05] MEDS: MAGNESIUM OXIDE 400 MG TABLET PO SCH (09:14)
--- NOTE | 2019-04-05 10:43 | PROVIDER PROGRESS NOTE ---
Assessment/Plan - Problem List (1) E. coli UTI (urinary tract infection) Assessment/Plan: Our urine culture showed gram-negative rods and today this was identified to be E. coli with sensitivities available. Ceftriaxone is appropriate which will continue through tomorrow then will plan oral antibiotics using Keflex or Augmentin. Still awaiting the abnormal urine culture from [facility] from 2 weeks ago, to determine if this was the same bacteria. A request was sent to yesterday, and repeat request was faxed today. Will also obtain imaging of abd/pelvis CT with contrast tomorrow (creat should be normal then), to determine if there is obstruction or if this is pyelone phritis to require longer treatment. (2) Dehydration Assessment/Plan: Per labs, she is still volume depleted. Will continue iv hydration today. Follow BMP (3) BETO (acute kidney injury) Assessment/Plan: BUN/creat improved from 53/1.7 at admission >> 31/1.3 today. (4) Weakness generalized Assessment/Plan: She started PT for the first time today. The PT evaluation reported normal gait but marked fatigue and malaise with walking in her room only; she had been bedbound for about 5 days before this admission. (5) Poor appetite Assessment/Plan: Improving slowly. Will advance her to a regular diet. (6) Pleural effusion Assessment/Plan: Still awaiting the resukts from , of the thoracentesis fluid removed 2 weeks ago. (7) Hx of essential hypertension Assessment/Plan: Slowly resuming her home BP meds. (8) Endometrial cancer Assessment/Plan: The plan is for 04/07/19 chemo, per Dr Mauricio. (9) Pancytopenia due to chemotherapy Assessment/Plan: Continue to follow CBC daily. Iron supplements or transfuse if Hgb <7 or if symptomatic. (10) Hx of deep venous thrombosis Assessment/Plan: She is on daily Xarelto. Platelet count is 45 today. No signs of bleeding (11) Hypokalemia Assessment/Plan: Resolved after replacement yesterday - Current Meds Current Meds: Current Medications Generic Name Dose Route Start Last Admin Trade Name Freq PRN Reason Stop Dose Admin Acetaminophen 650 mg 04/03/19 17:08 04/04/19 20:11 Tylenol PO 650 mg Q4HR PRN Administration Pain or Fever > 38C (100.4F) Ascorbic Acid 1,000 mg 04/05/19 09:00 04/05/19 09:13 Vitamin C PO 1,000 mg DAILY JOHN Administration Atorvastatin Calcium 40 mg 04/03/19 21:00 04/04/19 20:54 Lipitor PO 40 mg QPM JOHN Administration Ceftriaxone Sodium 1 gm 04/04/19 09:00 04/05/19 08:55 Rocephin IVP 1 gm DAILY JOHN Administration Cholecalciferol 2,000 unit 04/05/19 09:00 04/05/19 09:13 Vitamin D3 PO 2,000 unit DAILY JOHN Administration Dextrose/Sodium Chloride 1,000 mls @ 100 mls/hr 04/03/19 18:00 04/05/19 01:36 D5ns IV 100 mls/hr .Q10H JOHN Administration Magnesium Oxide 400 mg 04/05/19 09:00 04/05/19 09:14 Mag Ox PO 400 mg DAILYWM JOHN Administration Metoprolol Succinate 50 mg 04/04/19 09:00 04/05/19 08:59 Toprol Xl PO 50 mg DAILY JOHN Administration Multivitamins/Minerals 1 tab 04/05/19 09:00 04/05/19 09:13 Theragran M PO 1 tab DAILY JOHN Administration Pantoprazole Sodium 40 mg 04/04/19 07:00 04/05/19 06:47 Protonix IVP 40 mg QDAC JOHN Administration (Everolimus [ 1 each 04/04/19 09:00 04/04/19 09:26 Afinitor] 2.5 Mg) PO Not Given Tab DAILY JOHN (Letrozole [ 1 each 04/04/19 09:00 04/04/19 09:26 Letrozole] 2.5 Mg) PO Not Given Tab DAILY JOHN Polyethylene Glycol 17 gm 04/04/19 09:00 04/05/19 09:04 Miralax PO 17 gm DAILY JOHN Administration Prednisone 10 mg 04/04/19 08:00 04/05/19 08:54 Deltasone PO 10 mg DAILYWM JOHN Administration Rivaroxaban 15 mg 04/04/19 17:00 04/04/19 17:51 Xarelto PO 15 mg 1700 JOHN Administration Sodium Chloride 10 ml 04/03/19 17:08 04/05/19 06:47 Normal Saline Flush 0.9% IVP 10 ml PRN PRN Administration NEEDED PER PROVIDER ORDERS Sodium Chloride 10 ml 04/04/19 01:00 04/05/19 09:21 Normal Saline Flush 0.9% IVP Not Given 0100,0900,1700 JOHN - Lab Result Fish Bone Diagrams: 04/05/19 06:40 04/05/19 07:52 - Additional Planning My Orders: My Active Orders 04/04/19 11:54 Miscellaenous Nursing Order [RC] ONCE 04/04/19 11:55 Miscellaenous Nursing Order [RC] ONCE 04/05/19 Evaluate and Treat PT [PT] Routine 04/05/19 09:00 Ascorbic Acid Chew [Vitamin C] 1,000 mg PO DAILY Cholecalciferol [Vitamin D3] 2,000 unit PO DAILY Magnesium Oxide [Mag Ox] 400 mg PO DAILYWM Multivitamin W/Minerals [Theragran M] 1 tab PO DAILY Patient Own Med [Patient Own Medication] 1 each PO DAILY 04/06/19 05:00 CBC - COMP BLD CT W/AUTO DIFF [HEME] DAILYLAB CMP [COMPREHENSIVE METABOLIC PANEL] [CHEM] DAILYLAB 04/07/19 05:00 CBC - COMP BLD CT W/AUTO DIFF [HEME] DAILYLAB CMP [COMPREHENSIVE METABOLIC PANEL] [CHEM] DAILYLAB Subjective - Subjective Patient Reports: Feeling Better, Fatigue (after PT) Nursing Reports: Other (Walked in room with PT) Objective Vital Signs: Vital Signs - 24 hr 04/04/19 04/04/19 04/05/19 16:00 23:35 08:25 Temperature 36.4 C L 36.3 C L 36.4 C L Heart Rate [ 91 95 110 H Brachial] Respiratory 18 16 24 Rate Blood Pressure 108/65 108/60 120/83 H [Right Brachial artery] O2 Saturation 95 96 100 Oxygen O2 Source Room air I&O (Last 24 Hrs): Intake and Output Totals x24h 04/03/19 04/04/19 04/05/19 23:59 23:59 23:59 Intake Total 2550 2541.667 1218.333 Output Total 500 1200 750 Balance 0 1341.667 468.333 General: Alert, Oriented x3, Other (Sitting in chair) HEENT: Mucous membr. moist/pink, Other (Pale) Neck: Supple, No JVD Neuro: Non Focal Cardiovascular: Regular rate Respiratory: No respiratory distress Abdomen: Soft Extremities: No edema - Results Results: Laboratory Results WBC 11.9 x10^3/uL (4.8-10.8) H 04/05/19 06:40 RBC 3.46 10^6/uL (4.20-5.40) L 04/05/19 06:40 Hgb 10.7 g/dL (12.0-16.0) L 04/05/19 06:40 Hct 35.1 % (37.0-47.0) L 04/05/19 06:40 MCV 101.4 fL (81.0-99.0) H 04/05/19 06:40 MCH 30.9 pg (27.0-31.0) 04/05/19 06:40 MCHC 30.5 g/dL (32.0-36.0) L 04/05/19 06:40 RDW 17.8 % (12.0-15.0) H 04/05/19 06:40 Plt Count 45 10^3/uL (130-450) L 04/05/19 06:40 MPV 10.9 fL (7.9-10.8) H 04/05/19 06:40 Neut # (Auto) 9.8 10^3/uL (1.5-6.6) H 04/05/19 06:40 Lymph # (Auto) 0.8 10^3/uL (1.5-3.5) L 04/05/19 06:40 [place] # (Auto) 1.1 10^3/uL (0.0-1.0) H 04/05/19 06:40 Eos # (Auto) 0.1 10^3/uL (0.0-0.7) 04/05/19 06:40 Baso # (Auto) 0.0 10^3/uL (0.0-0.1) 04/05/19 06:40 Absolute Nucleated RBC 0.00 x10^3/uL 04/05/19 06:40 Nucleated RBC % 0.0 /100WBC 04/05/19 06:40 Sodium 140 mmol/L (135-145) 04/05/19 07:52 Potassium 3.8 mmol/L (3.5-5.0) 04/05/19 07:52 Chloride 110 mmol/L (101-111) 04/05/19 07:52 Carbon Dioxide 17 mmol/L (21-32) L 04/05/19 07:52 Anion Gap 13.0 (6-13) 04/05/19 07:52 BUN 31 mg/dL (6-20) H 04/05/19 07:52 Creatinine 1.3 mg/dL (0.4-1.0) H 04/05/19 07:52 Estimated GFR (MDRD) 41 (>89) L 04/05/19 07:52 Glucose 111 mg/dL (70-100) H 04/05/19 07:52 POC Whole Bld Glucose 145 mg/dL (70 - 100) H 04/04/19 11:47 Lactic Acid 1.7 mmol/L (0.5-2.2) 04/03/19 14:20 Calcium 8.4 mg/dL (8.5-10.3) L 04/05/19 07:52 Total Bilirubin 0.6 mg/dL (0.2-1.0) 04/05/19 07:52 AST 68 IU/L (10-42) H 04/05/19 07:52 ALT 52 IU/L (10-60) 04/05/19 07:52 Alkaline Phosphatase 456 IU/L (42-121) H 04/05/19 07:52 Total Protein 5.5 g/dL (6.7-8.2) L 04/05/19 07:52 Albumin 2.5 g/dL (3.2-5.5) L 04/05/19 07:52 Globulin 3.0 g/dL (2.1-4.2) 04/05/19 07:52 Albumin/Globulin Ratio 0.8 (1.0-2.2) L 04/05/19 07:52 Lipase 23 U/L (22-51) 04/03/19 14:20 Urine Color YELLOW 04/03/19 15:12 Urine Clarity CLOUDY (CLEAR) 04/03/19 15:12 Urine pH 6.0 PH (5.0-7.5) 04/03/19 15:12 Ur Specific [place] 1.020 (1.002-1.030) 04/03/19 15:12 Urine Protein TRACE mg/dL (NEGATIVE) 04/03/19 15:12 Urine Glucose (UA) NEGATIVE mg/dL (NEGATIVE) 04/03/19 15:12 Urine Ketones NEGATIVE mg/dL (NEGATIVE) 04/03/19 15:12 Urine Occult Blood SMALL (NEGATIVE) H 04/03/19 15:12 Urine Nitrite NEGATIVE (NEGATIVE) 04/03/19 15:12 Urine Bilirubin NEGATIVE (NEGATIVE) 04/03/19 15:12 Urine Urobilinogen 0.2 (NORMAL) E.U./dL (NORMAL) 04/03/19 15:12 Ur Leukocyte Esterase NEGATIVE (NEGATIVE) 04/03/19 15:12 Urine RBC 0-5 /HPF (0-5) 04/03/19 15:12 Urine WBC 6-10 /HPF (0-5) H 04/03/19 15:12 Ur Squamous Epith Cells RARE Squamous (<= Few) 04/03/19 15:12 Urine Bacteria Many /HPF (None Seen) H 04/03/19 15:12 Ur Microscopic Review INDICATED 04/03/19 15:12 Urine Culture Comments INDICATED 04/03/19 15:12
[2019-04-05] MEDS: EVEROLIMUS PO SCH (10:51)
[2019-04-05] MEDS: LETROZOLE 2.5 MG PO SCH (10:51)
[2019-04-05] MEDS: RIVAROXABAN 15 MG TABLET PO SCH (18:57)
[2019-04-05] MEDS: ATORVASTATIN 40 MG TABLET PO SCH (20:29)
[2019-04-05] MEDS ORDERED: ATORVASTATIN 10 MG TABLET PO SCH (21:00)
[2019-04-06 05:25] LABS: ALBUMIN 2.4 g/dL (3.2-5.5); ALBUMIN/GLOBULIN RATIO 0.8 (1.0-2.2); BILIRUBIN,TOTAL 0.6 mg/dL (0.2-1.0); CALCIUM 8.1 mg/dL (8.5-10.3); CREATININE 1.3 mg/dL (0.4-1.0); TOTAL PROTEIN 5.3 g/dL (6.7-8.2)
[2019-04-06 05:31] LABS: BASOPHILS % (AUTO) 0.1 %; EOSINOPHILS # (AUTO) 0.1 10^3/uL (0.0-0.7); EOSINOPHILS % (AUTO) 0.4 %; HGB - HEMOGLOBIN 10.2 g/dL (12.0-16.0); LYMPHOCYTES # (AUTO) 0.7 10^3/uL (1.5-3.5); LYMPHOCYTES % (AUTO) 5.8 %; MEAN CORPUSCULAR HEMOGLOBIN 30.4 pg (27.0-31.0); MEAN CORPUSCULAR HGB CONC 30.5 g/dL (32.0-36.0); MEAN CORPUSCULAR VOLUME 99.4 fL (81.0-99.0); MONOCYTES # (AUTO) 1.2 10^3/uL (0.0-1.0); MONOCYTES % (AUTO) 10.1 %; NEUTROPHILS # (AUTO) 9.7 10^3/uL (1.5-6.6); NEUTROPHILS % (AUTO) 83.1 %; PLT - PLATELET COUNT 42 10^3/uL (130-450); RED BLOOD COUNT 3.36 10^6/uL (4.20-5.40); RED CELL DISTRIBUTION WIDTH 17.8 % (12.0-15.0); WHITE BLOOD COUNT 11.6 x10^3/uL (4.8-10.8)
[2019-04-06] MEDS: DEXTROSE 5%-0.9% NACL 1,000 ML IV SCH (06:20)
[2019-04-06] MEDS: PANTOPRAZOLE 40 MG VIAL IVP SCH (06:30)
[2019-04-06] MEDS: SODIUM CHLORIDE FLUSH 0.9% 10 ML SYRINGE IVP SCH ×3 (06:30→21:19)
[2019-04-06] MEDS: SODIUM CHLORIDE FLUSH 0.9% 10 ML SYRINGE IVP PRN (06:30)
[2019-04-06] MEDS ORDERED: IOVERSOL 320 100 ML VIAL IVP ONE ×2 (06:39→08:50)
[2019-04-06] MEDS ORDERED: SODIUM CHLORIDE 0.9% 500 ML IV ONE (08:14)
[2019-04-06] MEDS: ASCORBIC ACID CHEW 500 MG TABLET PO SCH (09:18)
[2019-04-06] MEDS: POLYETHYLENE GLYCOL 3350 17 GM PACKET PO SCH (09:19)
[2019-04-06] MEDS: DOCUSATE SODIUM 250 MG CAPSULE PO SCH (09:20)
[2019-04-06] MEDS: CHOLECALCIFEROL 1,000 UNIT TABLET PO SCH (09:24)
[2019-04-06] MEDS: MULTIVITAMIN W/MINERALS TABLET PO SCH (09:25)
[2019-04-06] MEDS: predniSONE 5 MG TABLET PO SCH (09:25)
[2019-04-06] MEDS: SENNA 8.6 MG TABLET PO SCH (09:26)
[2019-04-06] MEDS: METOPROLOL SUCCINATE 50 MG TABLET PO SCH (09:27)
[2019-04-06] MEDS: MAGNESIUM OXIDE 400 MG TABLET PO SCH (09:27)
[2019-04-06] MEDS: cefTRIAXone 1 GM VIAL IVP SCH (11:17)
--- NOTE | 2019-04-06 11:59 | CT Report ---
Reason: UTI, eval for obstruction or pyelo Procedure Date: 04/06/2019 Accession Number: [id number] / [id number] Procedure: CT - ABDOMEN/PELVIS W/WO CPT Code: FULL RESULT: EXAM: CT ABDOMEN AND PELVIS WITHOUT AND WITH CONTRAST (CT IVP) EXAM DATE: 04/06/2019 09:10 AM. CLINICAL HISTORY: Urinary tract infection. COMPARISONS: None. TECHNIQUE: Routine helical imaging was performed through the kidneys, ureters and bladder in the precontrast, postcontrast and delayed phase. IV Contrast: 100 mL Optiray 320. Reconstructions: Coronal and sagittal. In accordance with CT protocol optimization, one or more of the following dose reduction techniques were utilized for this exam: automated exposure control, adjustment of mA and/or KV based on patient size, or use of iterative reconstructive technique. FINDINGS: Lung Bases: Mild right and minimal left pleural effusions are present. Compressive atelectasis of the right lower lobe is seen. A few scattered pulmonary nodules are identified including dominant 6 mm nodule in the subpleural lingula region (image 1/4). Dilated ascending thoracic aorta up to 4.4 cm is seen. Mild calcified coronary artery disease is present. Liver: Multiple hypodense large liver masses are seen. Dominant lesion in segment 7/4A measures 7.7 x 6.5 cm (image 27/4). Gallbladder/Bile Ducts: Unremarkable. Spleen: Normal. Pancreas: Normal. Adrenal Glands: Normal. Kidneys/Bladder: Right Kidney/Ureter: There is mild right-sided hydronephrosis and hydroureter. There is no obstructing stone identified, however, a dilated ureter is seen extending to the lower retroperitoneal level where a 4.0 x 3.6 cm potentially obstructing masses seen (image 61/4). No contour deforming masses identified. Left Kidney/Ureter: No renal or ureteral stones. No hydronephrosis or hydroureter. No masses. Bladder: Bladder is decompressed but otherwise unremarkable. No bladder stones are seen. Peritoneal Cavity/Bowel: As above, right retroperitoneal masslike focus is seen. There are additional shotty lymph nodes suggested in the retroperitoneum measuring up to 2.1 x 1.3 cm in the aortocaval region (image 46/4) age. An IVC filter is seen in place. Mass in the mesentery is seen measuring up to 5.4 x 3.6 cm (image 66/4). There is no obstruction or ileus. Abnormal soft tissue nodularity along the right mid abdominal wall measuring 4.3 x 2.2 cm is seen (image 53/4). Pelvic Organs: The uterus appears surgically absent. Mild free fluid is seen in the pelvis. No adenopathy is identified. Vasculature: No aneurysms or other significant abnormality. Bones: No significant abnormality. Other: None. IMPRESSION: 1. Findings suggesting diffuse metastatic disease with multiple liver masses, retroperitoneal lymphadenopathy,, and small pulmonary nodules mesenteric lymphadenopathy demonstrated. Primary malignancy is not clearly delineated on this exam. 2. Mild right-sided hydronephrosis extending to the mid ureter level and dominant potentially obstructing 4.0 cm right retroperitoneal mass/adenopathy. No kidney stones are demonstrated. 3. Mild pleural effusions, right side greater than left side. Small volume ascites seen in the lower abdomen and pelvis as well. 4. Mild calcified coronary artery disease and dilated ascending aorta up to 4.4 cm. RADIA ADDENDUM: 04/06/19 12:10 Additional IMPRESSION: As mentioned in the findings there is nodularity along the right mid abdominal wall measuring 4.3 x 2.2 cm also suspicious for malignancy. Findings may represent tumor seeding if this area correlates with prior surgical incision or laparoscopy port site.
--- NOTE | 2019-04-06 12:05 | XRAY Report ---
Reason: F/U thoracentesis (done 2 weeks ago @ ) Procedure Date: 04/06/2019 Accession Number: [id number] / [id number] Procedure: XR - Chest 1 View X-Ray CPT Code: 46444 FULL RESULT: EXAM: CHEST RADIOGRAPHY EXAM DATE: 04/06/2019 08:38 AM. CLINICAL HISTORY: Follow-up thoracentesis (done two weeks ago at ). COMPARISON: CHEST 2 VIEW 02/15/2018; CHEST W/O 03/07/2018. TECHNIQUE: 1 view. FINDINGS: Lungs/Pleura: Mildly elevated right hemidiaphragm. Lungs have low volume. No focal infiltrates are seen. A small nodular opacity is seen on the left side between the 6th and 7th ribs. There has been substantial improvement of the bilateral pulmonary opacities since the previous exams. Mediastinum: Within exam limitations, the cardiomediastinal contour is normal. Other: None. IMPRESSION: 1. Mildly elevated right hemidiaphragm, lungs have low volume. No focal pulmonary infiltrates. 2. There is a nodular opacity in the left lung between the 6th and 7th posterolateral ribs. This nodule is about 1.5 cm. 3. There has been substantial improvement in bilateral pulmonary opacities since the comparison chest x-ray and chest CT. RADIA
--- NOTE | 2019-04-06 12:13 | PROVIDER PROGRESS NOTE ---
Assessment/Plan - Problem List (1) E. coli UTI (urinary tract infection) Assessment/Plan: She is on day #4 of IV ceftriaxone here, and this E. coli is sensitive to it. I received the urine culture results from [facility] from 2 weeks ago: She grew 2 colonies of E. coli. I am awaiting the page which would list the sensitivities to for those E. coli from . CT of the abdomen was done to evaluate for stones or obstruction as the cause of the UTI. There was no pyelonephritis. There is a mass near the right ureter producing obstruction and a right hydronephrosis. Probable transition to p.o. antibiotics starting tomorrow (2) Pleural effusion Assessment/Plan: A chest x-ray was done today for follow-up of the pleural effusion from 2 weeks ago. This showed no significant reaccumulation, just tiny bilateral pleural effusions. I received the report of pathology from the thoracentesis of her pleural effusion done at 2 weeks ago: There was no infection. It was an exudate. It had malignant cells. She already knew that she had stage IV endometrial cancer, this confirms distant metastasis This was discussed with the patient and her in the room. (3) Endometrial cancer Assessment/Plan: She already knew that she had stage IV endometrial cancer, with liver metastasis. Malignant cells in the pleural effusion also are consistent with distant metastasis. There is a tumor partially blocking her right ureter (causing hydronephrosis), which was found by CT abd/pelvis done today, also consistent with retroperitoneal metastasis This was discussed with the patient and her in the room. (4) Dehydration Assessment/Plan: This morning she was tachycardic at 123 and still has elevated creatinine minimally. Saline bolus was given. (5) BETO (acute kidney injury) Assessment/Plan: Her creatinine has been abnormal at 1.3 for the past 3 days. She usually runs a normal creatinine of 1.0. CT of the abdomen was done to evaluate for stones or obstruction as the cause of the UTI. There was no pyelonephritis. There is a mass near the right ureter producing obstruction and a right hydronephrosis. This information will be passed on to her oncologist tomorrow (today is Sunday). (6) Weakness generalized Assessment/Plan: Improving slowly daily. She is able to walk in the hallway with the assistance of her (7) Poor appetite Assessment/Plan: Improved from her baseline at admission of anorexia and no appetite (8) Hx of essential hypertension Assessment/Plan: She has not required resumption of her home blood pressure medication since admission (9) Pancytopenia due to chemotherapy Assessment/Plan: Continue to follow CBC daily. There are no signs of bleeding. Xarelto is continuing to be dosed (10) Hx of deep venous thrombosis Assessment/Plan: There are no signs of bleeding. Xarelto is continuing to be dosed - Current Meds Current Meds: Current Medications Generic Name Dose Route Start Last Admin Trade Name Freq PRN Reason Stop Dose Admin Acetaminophen 650 mg 04/03/19 17:08 04/04/19 20:11 Tylenol PO 650 mg Q4HR PRN Administration Pain or Fever > 38C (100.4F) Ascorbic Acid 1,000 mg 04/05/19 09:00 04/06/19 09:18 Vitamin C PO 1,000 mg DAILY JOHN Administration Atorvastatin Calcium 40 mg 04/03/19 21:00 04/05/19 20:29 Lipitor PO 40 mg QPM JOHN Administration Ceftriaxone Sodium 1 gm 04/04/19 09:00 04/06/19 11:17 Rocephin IVP 1 gm DAILY OJHN Administration Cholecalciferol 2,000 unit 04/05/19 09:00 04/06/19 09:24 Vitamin D3 PO 2,000 unit DAILY JOHN Administration Docusate Sodium 250 - 500 mg 04/06/19 09:00 04/06/19 09:20 Colace 250mg Capsule PO 500 mg DAILY JOHN Administration Dextrose/Sodium Chloride 1,000 mls @ 40 mls/hr 04/05/19 14:32 04/06/19 11:18 D5ns IV 40 mls/hr .Q25H JOHN Infusion Magnesium Oxide 400 mg 04/05/19 09:00 04/06/19 09:27 Mag Ox PO 400 mg DAILYWM JOHN Administration Metoprolol Succinate 50 mg 04/04/19 09:00 04/06/19 09:27 Toprol Xl PO 50 mg DAILY JOHN Administration Multivitamins/Minerals 1 tab 04/05/19 09:00 04/06/19 09:25 Theragran M PO 1 tab DAILY JOHN Administration Pantoprazole Sodium 40 mg 04/04/19 07:00 04/06/19 06:30 Protonix IVP 40 mg QDAC JOHN Administration Polyethylene Glycol 17 gm 08/02/19 09:00 04/06/19 09:19 Miralax PO 17 gm DAILY JOHN Administration Prednisone 10 mg 04/04/19 08:00 04/06/19 09:25 Deltasone PO 10 mg DAILYWM JOHN Administration Rivaroxaban 15 mg 04/04/19 17:00 04/05/19 18:57 Xarelto PO 15 mg 1700 JOHN Administration Senna 8.6 - 17.2 mg 04/06/19 09:00 04/06/19 09:26 Senokot PO 17.2 mg DAILY JOHN Administration Sodium Chloride 10 ml 04/03/19 17:08 04/06/19 06:30 Normal Saline Flush 0.9% IVP 10 ml PRN PRN Administration NEEDED PER PROVIDER ORDERS Sodium Chloride 10 ml 04/04/19 01:00 04/06/19 09:29 Normal Saline Flush 0.9% IVP 10 ml 0100,0900,1700 JOHN Administration - Lab Result Fish Bone Diagrams: 04/06/19 04:55 04/06/19 04:55 - Diagnostic Imaging Results Diagnostic Imaging Results: Final report reviewed - Additional Planning My Orders: My Active Orders 04/05/19 14:32 Dextrose 5%-0.9% NaCl [D5ns] 1,000 ml IV 40 mls/hr 04/05/19 Dinner DIET [Regular Diet] [DIET] 04/06/19 09:00 Docusate Sodium 250Mg Capsule [Colace 250Mg Capsule] 250 - 500 mg PO DAILY Senna [Senokot] 8.6 - 17.2 mg PO DAILY 04/07/19 05:00 CBC - COMP BLD CT W/AUTO DIFF [HEME] DAILYLAB CMP [COMPREHENSIVE METABOLIC PANEL] [CHEM] DAILYLAB Subjective - Subjective Patient Reports: Feeling Better, Fatigue Objective Vital Signs: Vital Signs - 24 hr 04/05/19 04/05/19 04/05/19 14:40 16:00 23:40 Temperature 36.3 C L 36.2 C L 36.5 C Heart Rate [ 101 H 102 H 98 Brachial] Respiratory 18 20 16 Rate Blood Pressure 106/69 109/69 120/92 H [Right Brachial artery] O2 Saturation 97 99 98 04/06/19 07:44 Temperature 36.4 C L Heart Rate [ 123 H Brachial] Respiratory 16 Rate Blood Pressure 113/72 [Right Brachial artery] O2 Saturation 100 Oxygen O2 Source Room air I&O (Last 24 Hrs): Intake and Output Totals x24h 04/04/19 04/05/19 04/06/19 23:59 23:59 23:59 Intake Total 2541.667 2901.666 1401.000 Output Total 1200 1300 250 Balance 6227.359 2644.666 1151.000 General: Alert, Oriented x3 HEENT: Mucous membr. moist/pink, Other (PAle) Neck: Supple, No JVD Neuro: Non Focal Cardiovascular: Regular rate, No murmurs Respiratory: No respiratory distress, Breath sounds nml Abdomen: Normal bowel sounds, Soft Extremities: Other (1+ ankle edema) - Results Results: Laboratory Results WBC 11.6 x10^3/uL (4.8-10.8) H 04/06/19 04:55 RBC 3.36 10^6/uL (4.20-5.40) L 04/06/19 04:55 Hgb 10.2 g/dL (12.0-16.0) L 04/06/19 04:55 Hct 33.4 % (37.0-47.0) L 04/06/19 04:55 MCV 99.4 fL (81.0-99.0) H 04/06/19 04:55 MCH 30.4 pg (27.0-31.0) 04/06/19 04:55 MCHC 30.5 g/dL (32.0-36.0) L 04/06/19 04:55 RDW 17.8 % (12.0-15.0) H 04/06/19 04:55 Plt Count 42 10^3/uL (130-450) L 04/06/19 04:55 MPV 10.9 fL (7.9-10.8) H 04/05/19 06:40 Neut # (Auto) 9.7 10^3/uL (1.5-6.6) H 04/06/19 04:55 Lymph # (Auto) 0.7 10^3/uL (1.5-3.5) L 04/06/19 04:55 [place] # (Auto) 1.2 10^3/uL (0.0-1.0) H 04/06/19 04:55 Eos # (Auto) 0.1 10^3/uL (0.0-0.7) 04/06/19 04:55 Baso # (Auto) 0.0 10^3/uL (0.0-0.1) 04/06/19 04:55 Absolute Nucleated RBC 0.00 x10^3/uL 04/06/19 04:55 Nucleated RBC % 0.0 /100WBC 04/06/19 04:55 Sodium 139 mmol/L (135-145) 04/06/19 04:55 Potassium 3.8 mmol/L (3.5-5.0) 04/06/19 04:55 Chloride 108 mmol/L (101-111) 04/06/19 04:55 Carbon Dioxide 20 mmol/L (21-32) L 04/06/19 04:55 Anion Gap 11.0 (6-13) 04/06/19 04:55 BUN 29 mg/dL (6-20) H 04/06/19 04:55 Creatinine 1.3 mg/dL (0.4-1.0) H 04/06/19 04:55 Estimated GFR (MDRD) 41 (>89) L 04/06/19 04:55 Glucose 102 mg/dL (70-100) H 04/06/19 04:55 POC Whole Bld Glucose 145 mg/dL (70 - 100) H 04/04/19 11:47 Lactic Acid 1.7 mmol/L (0.5-2.2) 04/03/19 14:20 Calcium 8.1 mg/dL (8.5-10.3) L 04/06/19 04:55 Total Bilirubin 0.6 mg/dL (0.2-1.0) 04/06/19 04:55 AST 71 IU/L (10-42) H 04/06/19 04:55 ALT 48 IU/L (10-60) 04/06/19 04:55 Alkaline Phosphatase 455 IU/L (42-121) H 04/06/19 04:55 Total Protein 5.3 g/dL (6.7-8.2) L 04/06/19 04:55 Albumin 2.4 g/dL (3.2-5.5) L 04/06/19 04:55 Globulin 2.9 g/dL (2.1-4.2) 04/06/19 04:55 Albumin/Globulin Ratio 0.8 (1.0-2.2) L 04/06/19 04:55 Lipase 23 U/L (22-51) 04/03/19 14:20 Urine Color YELLOW 04/03/19 15:12 Urine Clarity CLOUDY (CLEAR) 04/03/19 15:12 Urine pH 6.0 PH (5.0-7.5) 04/03/19 15:12 Ur Specific [place] 1.020 (1.002-1.030) 04/03/19 15:12 Urine Protein TRACE mg/dL (NEGATIVE) 04/03/19 15:12 Urine Glucose (UA) NEGATIVE mg/dL (NEGATIVE) 04/03/19 15:12 Urine Ketones NEGATIVE mg/dL (NEGATIVE) 04/03/19 15:12 Urine Occult Blood SMALL (NEGATIVE) H 04/03/19 15:12 Urine Nitrite NEGATIVE (NEGATIVE) 04/03/19 15:12 Urine Bilirubin NEGATIVE (NEGATIVE) 04/03/19 15:12 Urine Urobilinogen 0.2 (NORMAL) E.U./dL (NORMAL) 04/03/19 15:12 Ur Leukocyte Esterase NEGATIVE (NEGATIVE) 04/03/19 15:12 Urine RBC 0-5 /HPF (0-5) 04/03/19 15:12 Urine WBC 6-10 /HPF (0-5) H 04/03/19 15:12 Ur Squamous Epith Cells RARE Squamous (<= Few) 04/03/19 15:12 Urine Bacteria Many /HPF (None Seen) H 04/03/19 15:12 Ur Microscopic Review INDICATED 04/03/19 15:12 Urine Culture Comments INDICATED 04/03/19 15:12
[2019-04-06] MEDS: RIVAROXABAN 15 MG TABLET PO SCH (16:47)
[2019-04-06] MEDS: ATORVASTATIN 40 MG TABLET PO SCH (21:18)
[2019-04-07 06:36] LABS: BASOPHILS % (AUTO) 0.2 %; EOSINOPHILS # (AUTO) 0.1 10^3/uL (0.0-0.7); EOSINOPHILS % (AUTO) 0.5 %; HGB - HEMOGLOBIN 9.5 g/dL (12.0-16.0); LYMPHOCYTES # (AUTO) 0.7 10^3/uL (1.5-3.5); LYMPHOCYTES % (AUTO) 6.1 %; MEAN CORPUSCULAR HEMOGLOBIN 31.3 pg (27.0-31.0); MEAN CORPUSCULAR VOLUME 97.7 fL (81.0-99.0); MONOCYTES # (AUTO) 1.1 10^3/uL (0.0-1.0); MONOCYTES % (AUTO) 10.1 %; NEUTROPHILS % (AUTO) 82.5 %; RED BLOOD COUNT 3.04 10^6/uL (4.20-5.40); WHITE BLOOD COUNT 10.9 x10^3/uL (4.8-10.8)
[2019-04-07 06:46] LABS: ALBUMIN 2.2 g/dL (3.2-5.5); ALBUMIN/GLOBULIN RATIO 0.8 (1.0-2.2); BILIRUBIN,TOTAL 0.6 mg/dL (0.2-1.0); CALCIUM 8.2 mg/dL (8.5-10.3); CREATININE 1.2 mg/dL (0.4-1.0); TOTAL PROTEIN 4.8 g/dL (6.7-8.2)
[2019-04-07 06:52] LABS: PLT - PLATELET COUNT 34 10^3/uL (130-450)
[2019-04-07] MEDS: PANTOPRAZOLE 40 MG VIAL IVP SCH (07:00)
[2019-04-07] MEDS: SODIUM CHLORIDE FLUSH 0.9% 10 ML SYRINGE IVP SCH ×2 (07:01→08:45)
[2019-04-07] MEDS: SODIUM CHLORIDE FLUSH 0.9% 10 ML SYRINGE IVP PRN (07:01)
[2019-04-07 07:02] LABS: PLATELET ESTIMATE, MANUAL DECREASED (<130,000) (NORMAL); PLATELET MORPHOLOGY NORMAL APPEARANCE (NORMAL)
[2019-04-07] MEDS: CHOLECALCIFEROL 1,000 UNIT TABLET PO SCH (08:41)
[2019-04-07] MEDS: MULTIVITAMIN W/MINERALS TABLET PO SCH (08:41)
[2019-04-07] MEDS: predniSONE 5 MG TABLET PO SCH (08:42)
[2019-04-07] MEDS: cefTRIAXone 1 GM VIAL IVP SCH (08:42)
[2019-04-07] MEDS: DOCUSATE SODIUM 250 MG CAPSULE PO SCH (08:42)
[2019-04-07] MEDS: MAGNESIUM OXIDE 400 MG TABLET PO SCH (08:43)
[2019-04-07] MEDS: METOPROLOL SUCCINATE 50 MG TABLET PO SCH (08:43)
[2019-04-07] MEDS: ASCORBIC ACID CHEW 500 MG TABLET PO SCH (08:44)
[2019-04-07] MEDS: SENNA 8.6 MG TABLET PO SCH (08:47)
[2019-04-07] MEDS: DEXTROSE 5%-0.9% NACL 1,000 ML IV SCH (08:52)
[2019-04-07] MEDS: POLYETHYLENE GLYCOL 3350 17 GM PACKET PO SCH (13:27)
--- NOTE | 2019-04-07 15:49 | Discharge Plan ---
Discharge Plan Problem Reviewed?: Yes Disposition: Home, Self Care Condition: Fair Prescriptions: Cephalexin [Keflex] 500 mg PO BID #12 capsule Saccharomyces Boulardii [Florastor] 250 mg PO BID #12 capsule Diet: Regular Activity Restrictions: Activity as Tolerated Shower Restrictions: No Driving Restrictions: Yes Assistance Devices: Walker Weight Bearing: Full Weight Health Concerns: Admitted with an under-treated UTI, marked dehydration, mental status changes, acute kidney injury, low plts after chemo. She needed iv antibiotics, fluids and started Physical Therapy. Plan of Treatment: Finish a course of antibiotics (6 more days, using Keflex) along with a probiotic for bowel health, on those days, a prescription was e-sent to [facility]. Keep appoint to Oncologist tomorrow. Care Goals: Return to stronger functioning and also treatment with chemo. Assessment: The patient and at bedside were kept apprised of all results and the plan. Follow-Up Care: [facility] [place] [facility] - Medical No Smoking: If you smoke, Please STOP! Call for help. Follow-up with: Fareed Carter MD [Primary Care Provider] -
[2019-04-07 15:58] VITALS: BP 120/82
--- NOTE | 2019-04-10 09:45 | DISCHARGE SUMMARY ---
"Discharge Summary Admit Date: 04/03/19 Discharge Date: 04/07/19 Discharging Provider: Dr Silvina Baldwin Primary Care Provider: Dr Fareed Carter, Dr Vandana Mauricio (Oncology) Code Status: Attempt Resuscitation Condition at Discharge: Stable Discharge Disposition: 01 Home, Self Care - DIAGNOSES Admission Diagnoses: 1) Weakness, severe 2) UTI 3) Dehydration 4) BETO 5) Endometrial CA with mets 6) Pancytopenia from chemo Discharge Diagnoses with Status of Each Condition: See below - HPI History of Present Illness: This is a 69 y/o white female with a history of HTN, CAD with stenting after an [place] in 03/20, endometrial cancer with known liver mets undergoing chemotherapy, history of DVT with IVC filter and is on Xarelto. She was hospitalized at in mid-March and had thoracentesis of a pleural effusion (results were pending) and had a positive urinalysis and was started on empiric Cipro. She saw her Oncologist after discharge who found that the UTI bacteria was resistant to Cipro and ordered Doxycycline, which the bacteria was sensitive to. The patient was getting progressively weak, anorexic and not even drinking liquids for 4 days before this admission, despite the change of treatment. She was too weak to dress or do ADLs and was mostly bedbound and the brought her to the ER. She denied fever, N/V, diarrhea or dysuria. She has mild chronic shortness of breath. The ER doctor spoke to her Oncologist, Dr Mauricio, who advised that she be admitted for iv fluids, iv antibiotics, since there was a plan to proceed with a second round or chemotherapy in 5 days. - CONSULTS | PROCEDURES Consultations: Phone discussion/consult with Dr Vandana Mauricio - HOSPITAL COURSE Hospital Course: (1) E. coli UTI (urinary tract infection) The admission WBC was 12.8 with a left shift and U/A showed continued high WBC and bacteriuria. She had blood and urine cultures done and was put on empiric IV ceftriaxone. The urine culture grew E. coli, sensitive to Ceftriaxone. Our result was compared to the urine culture results from [facility] done several weeks previously: that had also grown E. coli with the same sensitivities. She received 4 days of iv Ceftriaxone, and had improvement in WBC and her overall strength. She was discharged on Keflex 500 mg bid for 6 more days, along with Probiotics. A CT of the abdomen was done to evaluate for stones or obstruction as the cause of the UTI. There was no pyelonephritis but there is a mass near the right ureter producing partial obstruction and a right hydronephrosis was seen. (2) Pleural effusion A chest x-ray was done for follow-up of the pleural effusion from 2 weeks ago. This showed no significant reaccumulation, just tiny bilateral pleural effus ions. The final pathology report from the thoracentesis of her pleural effusion done at 2 weeks ago was requested and obtained: there was no infection, it was an exudate and malignant cells were seen. This result was discussed with the patient and her in the room. (3) Endometrial cancer She has stage IV endometrial cancer, with liver metastasis. Her labs showed AST 69, ALT 53, Alk Phos 445. Malignant cells in the pleural effusion also are consistent with distant metastasis, and there is a tumor mass partially blocking her right ureter (causing hydronephrosis), which was found by CT abd/pelvis. I discussed all these findings with her Oncologuist by phone. (4) Dehydration She was severely dehydrated at presentation by clinical exam and by labs which showed BUN/creat 53/1.7, Sodium 134, but normal Lactic Acid of 1.7. She was on aggressive iv fluid replacement using saline. Her appetite also improved and she was not as weak. She became 7L (+) in fluid balance however, and developed leg edema, managed with TEDS stockings. (5) BETO (acute kidney injury) Her creatinine improved from 1.7 at admission, to 1.2 on the day of discharge. She usually runs a normal creatinine of 1.0. CT of the abdomen was done to evaluate for stones or obstruction as the cause of the UTI. There was no pyelonephritis, but there is a mass near the right ureter causing ureteral obstruction and a right hydronephrosis. This was discussed with her Oncologist, who did not think she needed transfer for a ureteral stent, but Dr Mauricio advised continued monitoring of the creat and treatment of the UTI. (6) Weakness generalized She was too weak to get OOB for several days. She was then seen by PT, who started rehab with her and she improved slowly daily. She was able to walk in the hallway with the assistance of her as well. (7) Poor appetite Improved from her baseline at admission, of being anorexic and not even taking liquids for 4 days. (8) Hx of essential hypertension She did require resumption of her home blood pressure medication after admission, but the HCTZ was not resumed and she was advised to remain off this, for about a week, due to persistently elevated creat and concern for repeat volume depletion. Resuming HCTZ should be determined by her outpatient medical follow-up. (9) Pancytopenia due to chemotherapy Her CBC was monitored daily. The Hgb remained low but stable. The platelet count remained depressed in the 50's. I spoke to her Oncologist on Sun04/07/19 by phone, to determine if the patient would have the previously scheduled chemo on that day, and Dr Mauricio said the platelet count was too low to get chemo, and that she would order a CBC for Sun04/11/19 to determine if chemo could be planned at the end of the week. This information was passed on to the patient and her , who was at bedside. (10) Hx of deep venous thrombosis There were no signs of bleeding, despite a low plt count, which was monitored daily. Xarelto, at her usual dose was continued daily until the last day, when her platelet count dropped from the 50's to the 30's, at which point bleeding risk was felt to be very increased. She was told to have this managed by her Oncologist, who she was to see the following day as an outpatient. - ALLERGIES Allergies/Adverse Reactions: Allergies Allergy/AdvReac Type Severity Reaction Status Date / Time green pepper Allergy Nausea Verified 04/08/19 19:00 shellfish derived AdvReac Anaphylaxis Verified 04/08/19 18:59 - MEDICATIONS Home Medications: Ambulatory Orders Medication Instructions Recorded Confirmed Ascorbic Acid [Vitamin C] 1,000 mg PO DAILY 04/04/19 04/09/19 Atorvastatin [Lipitor] 40 mg PO QPM 04/04/19 04/09/19 Calcium Carbonate 500 mg PO DAILY 04/04/19 04/09/19 Cholecalciferol (Vitamin D3) 2,000 unit PO DAILY 04/04/19 04/09/19 [Vitamin D3] Cimetidine 200 mg PO DAILY 04/04/19 04/09/19 Iron Booster Complex 1 tab PO DAILY 04/04/19 04/09/19 Lisinopril 10 mg PO QPM 04/04/19 04/09/19 Magnesium 500 mg PO DAILY 04/04/19 04/09/19 Metoprolol Succinate [Toprol Xl] 50 mg PO DAILY 04/04/19 04/09/19 Multivitamin W/Minerals [Theragran 1 tab PO DAILY 04/04/19 04/09/19 M] Prednisone 10 mg PO DAILY 04/04/19 04/09/19 Rivaroxaban [Xarelto] 15 mg PO DAILY 04/04/19 04/09/19 Vitamin B Complex 1 tab PO DAILY 04/04/19 04/09/19 Cephalexin [Keflex] 500 mg PO BID #12 capsule 04/07/19 04/09/19 Saccharomyces Boulardii [Florastor] 250 mg PO BID #12 capsule 04/07/19 04/09/19 Triamterene/Hydrochlorothiazid 1 cap PO DAILY 04/09/19 04/09/19 [Triamterene-Hctz 37.5-25 mg Cp] - PHYSICAL EXAM AT DISCHARGE General Appearance: positive: No acute distress Eyes Bilateral: positive: Normal inspection, No scleral icterus ENT: positive: ENT inspection nml, Other (Pale) Neck: positive: Nml inspection, No JVD Respiratory: positive: No respiratory distress, Breath sounds nml Cardiovascular: positive: Regular rate & rhythm, No murmur Abdomen: positive: Non-tender, No distention Extremities: positive: Other (2+ edema to mid johnson) Neurologic/Psychiatric: positive: Oriented x3, Other (Grossly normal) - LABS Result Diagrams: 04/07/19 06:25 04/07/19 06:25 - DIAGNOSTIC IMAGING Diagnostic Imaging Results: Final report reviewed - FOLLOW UP Follow Up: See Dr Vandana Mauricio tomorrow, already scheduled at Oncology [facility] clinic. - TIME SPENT Time Spent in Discharge (Minutes): 60"
== END 2019-04-07 17:15 | disposition home or self-care (01) | DRG 809 ==
LOC: ED 11:49 → MS2 17:08
PROVIDERS: ADMIT Internal Medicine; ATTEND Internal Medicine
DX: D61.810 Antineoplastic chemotherapy induced pancytopenia (principal); C78.7 Secondary malignant neoplasm of liver and intrahepatic bile duct; D69.6 Thrombocytopenia, unspecified; N17.9 Acute kidney failure, unspecified; J91.0 Malignant pleural effusion; J90 Pleural effusion, not elsewhere classified; E11.9 Type 2 diabetes mellitus without complications; N30.00 Acute cystitis without hematuria; N13.1 Hydronephrosis with ureteral stricture, not elsewhere classified; E86.0 Dehydration; E87.6 Hypokalemia; C54.1 Malignant neoplasm of endometrium; I25.10 Atherosclerotic heart disease of native coronary artery without angina pectoris; T45.1X5A Adverse effect of antineoplastic and immunosuppressive drugs, initial encounter; Y92.531 Health care provider office as the place of occurrence of the external cause; R06.02 Shortness of breath; R19.09 Other intra-abdominal and pelvic swelling, mass and lump; B96.20 Unspecified Escherichia coli [E. coli] as the cause of diseases classified elsewhere; Z16.39 Resistance to other specified antimicrobial drug; R63.0 Anorexia; I10 Essential (primary) hypertension; I25.2 Old myocardial infarction; Z68.29 Body mass index [BMI] 29.0-29.9, adult; Z79.82 Long term (current) use of aspirin; Z79.01 Long term (current) use of anticoagulants; Z79.84 Long term (current) use of oral hypoglycemic drugs; Z79.899 Other long term (current) drug therapy; Z95.5 Presence of coronary angioplasty implant and graft; Z87.01 Personal history of pneumonia (recurrent); Z87.440 Personal history of urinary (tract) infections; Z86.718 Personal history of other venous thrombosis and embolism; Z79.52 Long term (current) use of systemic steroids
CPT/HCPCS: 36415; 71045; 74178; 80053; 81001; 83605; 83690; 85025; 87077; 87086; 87181; 96361; 96365; 97116; 97162; 97530; 99284; 99285; A9270; J7512; Q9967; 81003; 83036

== ENCOUNTER 2019-04-08 10:26 | Outpatient (CLI) | payer MEDICARE, BC | END 2019-04-08 10:27 | disposition critical access hospital (66) | LOC: EMS 10:26 | PROVIDERS: ATTEND Surgery | DX: R41.0 Disorientation, unspecified (principal); R55 Syncope and collapse; R53.1 Weakness; R51 Headache | CPT/HCPCS: A0425; A0429 ==

== ENCOUNTER 2019-04-08 10:36 | Inpatient (IN) | payer MEDICARE, BC ==
--- NOTE | 2019-04-08 12:09 | XRAY Report ---
Reason: chest pain Procedure Date: 04/08/2019 Accession Number: [id number] / [id number] Procedure: XR - Chest 1 View X-Ray CPT Code: 98557 FULL RESULT: EXAM: CHEST RADIOGRAPHY EXAM DATE: 04/08/2019 11:51 AM. CLINICAL HISTORY: Chest pain. COMPARISON: CHEST 1 VIEW 04/06/2019 8:35 AM. TECHNIQUE: 1 view. FINDINGS: Lungs/Pleura: Right basilar infiltrate or atelectasis. Pleural thickening or fluid along the lateral pleura extending to the minor fissure. Chronic elevated right hemidiaphragm. Left basilar atelectasis or scarring.. Mediastinum: Heart size normal, ectatic aorta Other: DJD spine IMPRESSION: 1. Right basilar infiltrate or atelectasis possible small right effusion. 2. Left basilar atelectasis or scarring RADIA
[2019-04-08 12:26] LABS: VBG PCO2 32.2 mmHg (41-51); VBG PH 7.421 (7.31-7.41)
[2019-04-08 12:27] LABS: VBG BASE EXCESS -3.2 mmol/L (-2 - +2); VBG PO2 23.3 mmHg (25-47); VBG TOTAL CO2 21.5 mmol/L (24-29)
[2019-04-08] MEDS ORDERED: SODIUM CHLORIDE 0.9% 500 ML IV ONE (12:28)
[2019-04-08 12:30] LABS: BASOPHILS % (AUTO) 0.1 %; EOSINOPHILS % (AUTO) 0.3 %; HGB - HEMOGLOBIN 10.1 g/dL (12.0-16.0); LYMPHOCYTES # (AUTO) 0.5 10^3/uL (1.5-3.5); MEAN CORPUSCULAR HEMOGLOBIN 30.1 pg (27.0-31.0); MEAN CORPUSCULAR HGB CONC 30.1 g/dL (32.0-36.0); MEAN CORPUSCULAR VOLUME 99.7 fL (81.0-99.0); MONOCYTES # (AUTO) 0.9 10^3/uL (0.0-1.0); MONOCYTES % (AUTO) 8.2 %; NEUTROPHILS # (AUTO) 9.9 10^3/uL (1.5-6.6); RED BLOOD COUNT 3.36 10^6/uL (4.20-5.40); RED CELL DISTRIBUTION WIDTH 18.5 % (12.0-15.0); WHITE BLOOD COUNT 11.4 x10^3/uL (4.8-10.8)
[2019-04-08 13:04] LABS: PLT - PLATELET COUNT 26 10^3/uL (130-450)
[2019-04-08 13:18] LABS: PLATELET ESTIMATE, MANUAL DECREASED (<130,000) (NORMAL); PLATELET MORPHOLOGY NORMAL APPEARANCE (NORMAL)
[2019-04-08 13:21] LABS: TROPONIN I 0.13 ng/mL (<0.49)
[2019-04-08 14:08] LABS: ALBUMIN 2.3 g/dL (3.2-5.5); ALBUMIN/GLOBULIN RATIO 0.8 (1.0-2.2); BILIRUBIN,TOTAL 1.1 mg/dL (0.2-1.0); CALCIUM 8.4 mg/dL (8.5-10.3); CREATININE 1.4 mg/dL (0.4-1.0); TOTAL PROTEIN 5.3 g/dL (6.7-8.2)
[2019-04-08 15:03] LABS: BILIRUBIN,URINE NEGATIVE (NEGATIVE); GLUCOSE, URINE (UA) NEGATIVE (NEGATIVE); KETONES,URINE (UA) TRACE mg/dL (NEGATIVE); LEUKOCYTE ESTERASE, URINE NEGATIVE (NEGATIVE); NITRITE,URINE NEGATIVE (NEGATIVE); OCCULT BLOOD,URINE SMALL (NEGATIVE); PH,URINE 5.5 PH (5.0-7.5); PROTEIN,URINE 30 mg/dL (NEGATIVE); UROBILINOGEN,URINE 0.2 (NORMAL) E.U./dL (NORMAL)
[2019-04-08 15:04] LABS: CLARITY,URINE CLEAR (CLEAR)
[2019-04-08 15:15] LABS: AMORPHOUS SEDIMENT,UR Moderate /LPF; BACTERIA,URINE None Seen /HPF (None Seen); CASTS, URINE 6-10 Hyaline Casts /LPF; RBC,URINE 0-5 /HPF (0-5); SQUAMOUS EPITHELIAL CELL,UR NONE SEEN (<= Few)
[2019-04-08] MEDS ORDERED: cefTRIAXone 2 GM in SODIUM CHLORIDE 0.9% MINIBAG 100 ML IV STA (17:11)
--- NOTE | 2019-04-08 17:11 | CT Report ---
Reason: AMS Procedure Date: 04/08/2019 Accession Number: [id number] / [id number] Procedure: CT - HEAD WO CPT Code: FULL RESULT: EXAM: CT HEAD EXAM DATE: 04/08/2019 04:29 PM. CLINICAL HISTORY: Altered mental status COMPARISON: None. TECHNIQUE: Multiaxial CT images were obtained from the foramen magnum to the vertex. Reformats: Sagittal and coronal. IV contrast: None. In accordance with CT protocol optimization, one or more of the following dose reduction techniques were utilized for this exam: automated exposure control, adjustment of mA and/or KV based on patient size, or use of iterative reconstructive technique. FINDINGS: Parenchyma: A large wedge-shaped hypoattenuation is seen in right parietal lobe, involving both the finney matter and white matter with loss of finney-white matter differentiation; concerning for a right MCA territory infarct (late acute to subacute stage). No acute intracranial hemorrhage. no midline shift or mass-effect. Patchy hypoattenuation in periventricular white matter surrounding the trigone of left lateral ventricle, consistent with age-related microangiopathic changes. No evidence of mass, midline shift, or CT findings of infarction. Finney-white differentiation is distinct. Extraaxial Spaces: Normal for age. No subdural or epidural collections identified. Ventricles: Normal in size and position. Sinuses and Orbits: mucosal thickening is seen involving left maxillary sinus. Rest of the imaged paranasal sinuses, orbits, and mastoids show no significant abnormality. Bones: No evidence of fracture or calvarial defect. Other: None. IMPRESSION: A large wedge-shaped hypoattenuation is in right parietal lobe with involvement of both white matter and finney matter and loss of finney-white matter differentiation, concerning for a right MCA territory infarct. (Late acute to subacute stage). No acute intracranial hemorrhage. no midline shift or mass-effect. RADIA The call report notification system was initiated by Dr. Judith Mccormack at 04:53 PM on 04/08/2019. The above call report findings were discussed with Randell Lyles by Dr. Judith Mccormack at 05:00 PM on 04/08/2019.
[2019-04-08] MEDS ORDERED: SODIUM CHLORIDE 0.9% 1,000 ML IV ONE (17:12)
--- NOTE | 2019-04-08 17:24 | ED Physician Documentation ---
History of Present Illness - Stated complaint Stated Complaint: AMS - Chief complaint Chief Complaint: Neuro - Additonal information Additional information: This is a 69-year-old female with a history of stage IV endometrial cancer (who received chemotherapy in the past and is about to start new chemotherapy), hypertension, DVT (previously on Xarelto which was stopped yesterday), CAD with NSTEMI, pleural effusion status post thoracentesis 3 weeks ago, and recent hospitalization for encephalopathy and UTI, who presents with altered mental status. Her states that she was discharged yesterday and she was doing well, her mental status had cleared, however over the last 12 hours she seemed to become more confused. She got up to use the bathroom and became very weak, he had to prevent her from falling. She has not hit her head. She is somewhat more sleepy than usual, and not always responding appropriately to questions. Her states that this appears similar to what she was being treated for in the hospital yesterday, and is concerned she has a UTI. There has been no vomiting, no fever. Patient denies pain or urinary complaints at this time. There has not been focal weakness or numbness noted. No slurred speech. Review of Systems Unable to obtain: Other (Somewhat limited due to mental status) Constitutional: denies: Fever Nose: denies: Congestion Throat: denies: Sore throat Cardiac: denies: Chest pain / pressure Respiratory: denies: Dyspnea GI: denies: Abdominal Pain : reports: Other (+ for dysuria) Musculoskeletal: denies: Extremity pain Neurologic: reports: Confused, Altered mental status Endocrine: reports: Easy bruising / bleeding Immunocompromised: reports: Chemotherapy PD PAST MEDICAL HISTORY - Past Medical History Past Medical History: Yes Cardiovascular: Coronary artery disease Respiratory: Other Endocrine/Autoimmune: Type 2 diabetes [employer] HELPER: Other - Past Surgical History General: Liver surgery /[employer]PER[employer] HELPER: Hysterectomy Cardiovascular: Coronary stent - Present Medications Home Medications: Ambulatory Orders Medication Instructions Recorded Confirmed Ascorbic Acid [Vitamin C] 1,000 mg PO DAILY 04/04/19 04/04/19 Atorvastatin [Lipitor] 40 mg PO QPM 04/04/19 04/04/19 Calcium Carbonate 500 mg PO DAILY 04/04/19 04/04/19 Cholecalciferol (Vitamin D3) 2,000 unit PO DAILY 04/04/19 04/04/19 [Vitamin D3] Cimetidine 200 mg PO DAILY 04/04/19 04/04/19 Iron Booster Complex 1 tab PO DAILY 04/04/19 04/04/19 Lisinopril 10 mg PO DAILY 04/04/19 04/04/19 Magnesium 500 mg PO DAILY 04/04/19 04/04/19 Malic Acid 650 mg PO DAILY 04/04/19 04/04/19 Metoprolol Succinate [Toprol Xl] 50 mg PO DAILY 04/04/19 04/04/19 Multivitamin W/Minerals [Theragran 1 tab PO DAILY 04/04/19 04/04/19 M] Prednisone 10 mg PO DAILY 04/04/19 04/04/19 Rivaroxaban [Xarelto] 15 mg PO DAILY 04/04/19 04/04/19 Vitamin B Complex 1 tab PO DAILY 04/04/19 04/04/19 Cephalexin [Keflex] 500 mg PO BID #12 capsule 04/07/19 Saccharomyces Boulardii [Florastor] 250 mg PO BID #12 capsule 04/07/19 - Allergies Allergies/Adverse Reactions: Allergies Allergy/AdvReac Type Severity Reaction Status Date / Time green pepper Allergy Nausea Verified 04/08/19 19:00 shellfish derived AdvReac Anaphylaxis Verified 04/08/19 18:59 - Social History Does the pt smoke?: No Smoking Status: Never smoker Does the pt drink ETOH?: No Does the pt have substance abuse?: No PD ED PE NORMAL - Vitals Vital signs reviewed: Yes - General General: Other (Somewhat somnolent, but awakens easily) - HEENT HEENT: PERRL - Neck Neck: Supple, no meningeal sign - Cardiac Cardiac: Other (Tachycardia, regular rhythm) - Respiratory Respiratory: Other (Bibasilar crackles) - Abdomen Abdomen: Soft, Non tender, Non distended, Other (Well-healed surgical scars) - Derm Derm: Other (Diffuse scattered bruises) - Extremities Extremities: No deformity - Neuro Neuro: Other (Patient is somewhat somnolent, but awakens easily to verbal stimuli. She is Oriented to self, month and year, place, and general event of being in the hospital due to confusion. There is no facial droop, eyelid squeeze is equal in strength bilaterally, sensation to light touch over distribution of trigeminal nerve is intact bilaterally, head turn is equal strength bilaterally, patient extends her tongue in the midline. Extraocular muscle movements are intact bilaterally. On strength testing patient requires redirection several times to squeeze with both hands (initially she does not squeeze her left), but when she does she has 5 out of 5 strength bilaterally with hand squeeze, elbow flexion and extension. She has 5 out of 5 strength with hip flexion and ankle flexion and dorsiflexion bilaterally. She does have some drift with her lower extremities bilaterally, is able to hold her legs up for 5 seconds on both sides.) - Psych Psych: Normal mood, Normal affect Results - Vitals Vitals: Vital Signs - 24 hr 04/08/19 04/08/19 04/08/19 10:38 11:22 11:40 Temperature 36.9 C Heart Rate 108 H 109 H 101 H Heart Rate [ Brachial] Heart Rate [ Monitoring electrodes] Respiratory 22 19 19 Rate Blood Pressure 123/76 121/67 121/67 Blood Pressure [Left Brachial artery] O2 Saturation 99 98 95 04/08/19 04/08/19 04/08/19 12:30 13:07 14:43 Temperature Heart Rate 94 104 H Heart Rate [ Brachial] Heart Rate [ Monitoring electrodes] Respiratory 19 16 15 Rate Blood Pressure 129/74 114/102 H 124/83 H Blood Pressure [Left Brachial artery] O2 Saturation 99 97 98 04/08/19 04/08/19 04/08/19 17:07 18:25 19:00 Temperature 36.3 C L Heart Rate 110 H Heart Rate [ 115 H Brachial] Heart Rate [ 95 Monitoring electrodes] Respiratory 19 20 Rate Blood Pressure Blood Pressure 126/67 [Left Brachial artery] O2 Saturation 95 100 04/08/19 20:34 Temperature 36.9 C Heart Rate Heart Rate [ 117 H Brachial] Heart Rate [ Monitoring electrodes] Respiratory 20 Rate Blood Pressure Blood Pressure 126/73 [Left Brachial artery] O2 Saturation Oxygen O2 Source Room air - Labs Labs: Laboratory Tests 04/08/19 04/08/19 04/08/19 12:20 12:20 12:20 WBC 11.4 H RBC 3.36 L Hgb 10.1 L Hct 33.5 L MCV 99.7 H MCH 30.1 MCHC 30.1 L RDW 18.5 H Plt Count 26 L* Neut # (Auto) 9.9 H Lymph # (Auto) 0.5 L [place] # (Auto) 0.9 Eos # (Auto) 0.0 Baso # (Auto) 0.0 Absolute Nucleated RBC 0.00 Nucleated RBC % 0.0 Manual Slide Review Indicated WBC Morphology NORMAL APPEARANCE Platelet Estimate DECREASED (<130,000) Platelet Morphology NORMAL APPEARANCE RBC Morph Micro Appear 2+ POIKILOCYTOSIS VBG pH VBG pCO2 VBG pO2 VBG HCO3 VBG Total CO2 VBG O2 Saturation VBG Base Excess Sodium 142 Potassium 4.4 Chloride 111 Carbon Dioxide 15 L Anion Gap 16.0 H BUN 33 H Creatinine 1.4 H Estimated GFR (MDRD) 37 L Glucose 109 H Lactic Acid Calcium 8.4 L Total Bilirubin 1.1 H AST 99 H ALT 54 Alkaline Phosphatase 534 H Ammonia Troponin I Troponin I High Sens B-Natriuretic Peptide Total Protein 5.3 L Albumin 2.3 L Globulin 3.0 Albumin/Globulin Ratio 0.8 L Lipase 22 TSH 13.55 H Urine Color Urine Clarity Urine pH Ur Specific [place] Urine Protein Urine Glucose (UA) Urine Ketones Urine Occult Blood Urine Nitrite Urine Bilirubin Urine Urobilinogen Ur Leukocyte Esterase Urine RBC Urine WBC Ur Squamous Epith Cells Amorphous Sediment Urine Bacteria Urine Casts Ur Microscopic Review Urine Culture Comments Ethyl Alcohol 6.6 04/08/19 04/08/19 04/08/19 12:20 12:20 12:20 WBC RBC Hgb Hct MCV MCH MCHC RDW Plt Count Neut # (Auto) Lymph # (Auto) [place] # (Auto) Eos # (Auto) Baso # (Auto) Absolute Nucleated RBC Nucleated RBC % Manual Slide Review WBC Morphology Platelet Estimate Platelet Morphology RBC Morph Micro Appear VBG pH VBG pCO2 VBG pO2 VBG HCO3 VBG Total CO2 VBG O2 Saturation VBG Base Excess Sodium Potassium Chloride Carbon Dioxide Anion Gap BUN Creatinine Estimated GFR (MDRD) Glucose Lactic Acid 1.8 Calcium Total Bilirubin AST ALT Alkaline Phosphatase Ammonia Troponin I 0.13 Troponin I High Sens 142.6 H* B-Natriuretic Peptide 445 H Total Protein Albumin Globulin Albumin/Globulin Ratio Lipase TSH Urine Color Urine Clarity Urine pH Ur Specific [place] Urine Protein Urine Glucose (UA) Urine Ketones Urine Occult Blood Urine Nitrite Urine Bilirubin Urine Urobilinogen Ur Leukocyte Esterase Urine RBC Urine WBC Ur Squamous Epith Cells Amorphous Sediment Urine Bacteria Urine Casts Ur Microscopic Review Urine Culture Comments Ethyl Alcohol 04/08/19 04/08/19 04/08/19 12:20 12:20 14:55 WBC RBC Hgb Hct MCV MCH MCHC RDW Plt Count Neut # (Auto) Lymph # (Auto) [place] # (Auto) Eos # (Auto) Baso # (Auto) Absolute Nucleated RBC Nucleated RBC % Manual Slide Review WBC Morphology Platelet Estimate Platelet Morphology RBC Morph Micro Appear VBG pH 7.421 H VBG pCO2 32.2 L VBG pO2 23.3 L VBG HCO3 20.5 L VBG Total CO2 21.5 L VBG O2 Saturation 41.7 L VBG Base Excess -3.2 L Sodium Potassium Chloride Carbon Dioxide Anion Gap BUN Creatinine Estimated GFR (MDRD) Glucose Lactic Acid Calcium Total Bilirubin AST ALT Alkaline Phosphatase Ammonia 10.4 Troponin I Troponin I High Sens B-Natriuretic Peptide Total Protein Albumin Globulin Albumin/Globulin Ratio Lipase TSH Urine Color YELLOW Urine Clarity CLEAR Urine pH 5.5 Ur Specific [place] 1.025 Urine Protein 30 H Urine Glucose (UA) NEGATIVE Urine Ketones TRACE Urine Occult Blood SMALL H Urine Nitrite NEGATIVE Urine Bilirubin NEGATIVE Urine Urobilinogen 0.2 (NORMAL) Ur Leukocyte Esterase NEGATIVE Urine RBC 0-5 Urine WBC 0-3 Ur Squamous Epith Cells NONE SEEN Amorphous Sediment Moderate Urine Bacteria None Seen Urine Casts 6-10 Hyaline Casts Ur Microscopic Review INDICATED Urine Culture Comments NOT INDICATED Ethyl Alcohol - Rads (name of study) CT head Radiology: Prelim report reviewed (Concerning for right MCA subacute stroke) CXR Radiology: Prelim report reviewed (Pleural effusion and atelectasis) PD MEDICAL DECISION MAKING - ED course Complexity details: considered differential (UTI, pneumonia, electrolyte abnormality, encephalopathy, medication side effect, head bleed, mass/metastatic lesion, hypercarbia) ED course: On initial exam patient is tachycardic, and somewhat somnolent appearing, but she does not have facial droop, sensory, or strength deficits. She was placed on the monitor, given a 500cc NS bolus, and labs were drawn. Labs are notable for mild leukocytosis, creatinine of 1.4 which is close to baseline, alk phos elevation and AST 99. Pt has no abdominal tenderness. VBG shows pH 7.42, pCO2 32. Troponin is 0.13, within normal limits, though high-sensivity troponin is slightly elevated so this will require trending. BNP is elevated at 445 and patient does have LE edema, so we will perform gentle fluid hydration and avoid large boluses. TSH is elevated, T4 pending at the time of admission. Blood cultures were drawn and ceftriaxone IV was started. Urinalysis was negative for infection. CXR shows small effusion, which is known, and atelectasis without clear signs of pneumonia. CT head obtained and is concerning for right MCA subacute stroke. On repeat neurologic exam her left eyelid is closed at rest, however when asked to open and close her eyes her face is symmetric, her lower extremity strength is symmetric, she may have some partial neglect on her LUE, as it takes mulitple commands for her to move the arm and perform tasks. Her deficits are subtle but they are concerning for infarct. It is unclear to me if her somnolence/encephalopathy is due to this stroke, or a result of another unclear infection/medication side effect/other process. She has multiple contraindications to TPA and in fact her anticoagulation was just recently stopped. She was started on maintenance fluids as she is still tachycardic. I updated patient and her family and she was admitted to the ICU for monitoring and work up. Departure - Departure Disposition: ED Place in Observation Clinical Impression: Elevated TSH Altered mental status Qualifiers: Altered mental status type: somnolence Qualified Code(s): R40.0 - Somnolence Cerebrovascular accident (CVA) Qualifiers: CVA mechanism: occlusion Precerebral and cerebral artery: middle cerebral artery Laterality of affected vessel: right Qualified Code(s): I63.511 - Cerebral infarction due to unspecified occlusion or stenosis of right middle cerebral artery Condition: Serious Discharge Date/Time: 04/08/19 18:20
[2019-04-08] MEDS ORDERED: SODIUM CHLORIDE FLUSH 0.9% 10 ML SYRINGE IVP PRN (17:43)
[2019-04-08] MEDS: SODIUM CHLORIDE 0.9% 1,000 ML IV SCH (18:43)
[2019-04-08] MEDS ORDERED: CEFEPIME 2 GM in SODIUM CHLORIDE 0.9% MINIBAG 100 ML IV SCH (18:44)
[2019-04-08] MEDS ORDERED: CEFEPIME 1 GM in SODIUM CHLORIDE 0.9% MINIBAG 100 ML IV SCH (19:00)
[2019-04-08] MEDS: CEFEPIME 2 GM in SODIUM CHLORIDE 0.9% MINIBAG 100 ML IV SCH (19:29)
[2019-04-08] MEDS: METOPROLOL SUCCINATE 50 MG TABLET PO SCH (20:37)
--- NOTE | 2019-04-08 20:56 | HISTORY & PHYSICAL EXAMINATION ---
Chief Complaint - Chief Complaint Chief Complaint: Altered mental status, syncope and collapse Stroke/TIA/Neuro Template - Admitted From Admitted from: ED - History Obtained From Records Reviewed: RN notes reviewed, Old records reviewed History obtained from: Patient, Family (, Edgar) Exam limitations: Clinical condition (non-interactive, difficult to examine, poor historian) - History of Present Illness Problem Location Description: Generalized, Left neglect Severity at the worst: reports: Moderate Symptom Quality: reports: Headache, Slurred speech, Expressive aphasia, Receptive aphasia, Ataxia, Syncope Context- Symptoms started w/: reports: Exercising, Walking Timing: reports: Gradual onset Duration: reports: Minutes: (5) Improved with: reports: Rest Worsened by: reports: Exertion, Movement Associated symptoms: reports: Feeling faint / dizzy, General Weakness, Other (change in mental status) HPI Comment/Other: Janina Thurman is a very ill appearing 69-year old female with a past medical history of endometrial cancer with metastasis to the liver, on chemotherapy, pancytopenia, CAD with NSTEMI in 03/2018 requiring coronary stents, recent pleural effusion which was tapped at the , hypertension, hyperlipidemia, diabetes mellitus type 2, DVT, status post vena cava filter, previously on Xarelto, pneumocystitis carinii pneumonia, recurrent UTIs, electrolyte disturbance, and depression. Since being discharged on 04/07/2019 the patient has felt week with mild dysuria. Her , Edgar is present for her initial exam and explained that she had been up in the night to use the bathroom, and collapsed on the bed. Luckily he was right by her side so this was a witnessed fall. He described her body going "limp", and she appeared to have problems speaking, so this prompted him to call 911. When EMS arrived, the patient was minimally responsive, but confused. After arriving in the ED the patient was stabilized with IV fluids, but still had confusion which was a c hange from her normal so a head CT was done showing an acute to sub-acute right MCA infarct with a wedge shaped hypoattenuation. On my exam, she is confused, has left sided weakness that is subtle, would not open her left eye unless prompted and complained of a right sided headache that is improved. * I explained to Edgar, her that we have limited resources here at [facility], but he still wanted her admitted to our service. I asked about code status since her condition may become worse, but he confirmed that he would like all efforts made to extend her life and she is to remain a FULL code. Labs showed an elevated WBC count of 11.4, H/H of 10.1/33.5, MCV of 99.7, platelets 26, sodium 142, potassium 4.4, BUN 33, creatinine of 1.4, GFR of 37, glucose 109, lactic acid 1.8, bili 1.1, alk phos 534, AST 99, AST 54, TSH 13.55, alcohol 6.6, troponin 0.13, high sens troponin 142.6, BNP 445, VBG pH of 7.42, ammonia 10.4, and a clean UA. She was originally admitted to observation, but changed to inpatient given the grave clinical condition and her lack of IV access and venipuncture sites which may possibly delay her care. Anesthesia has been consulted for a central line placement and I have spent greater than 1 hour 1:1, and 2-3 hours in chart preparation/billing. Staff has been updated and a detailed report was given to cristi CHINCHILLA. 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 - Social History Does the pt smoke?: No Smoking Status: Never smoker Does the pt drink ETOH?: No Does the pt have substance abuse?: No - POLST Patient has POLST: No POLST Status: Full Code - Family History Family History: Mother: , CAD, Father: Meds/Allgy - Home Medications Home Medications: Ambulatory Orders Medication Instructions Recorded Confirmed Ascorbic Acid [Vitamin C] 1,000 mg PO DAILY 04/04/19 04/04/19 Atorvastatin [Lipitor] 40 mg PO QPM 04/04/19 04/04/19 Calcium Carbonate 500 mg PO DAILY 04/04/19 04/04/19 Cholecalciferol (Vitamin D3) 2,000 unit PO DAILY 04/04/19 04/04/19 [Vitamin D3] Cimetidine 200 mg PO DAILY 04/04/19 04/04/19 Iron Booster Complex 1 tab PO DAILY 04/04/19 04/04/19 Lisinopril 10 mg PO DAILY 04/04/19 04/04/19 Magnesium 500 mg PO DAILY 04/04/19 04/04/19 Malic Acid 650 mg PO DAILY 04/04/19 04/04/19 Metoprolol Succinate [Toprol Xl] 50 mg PO DAILY 04/04/19 04/04/19 Multivitamin W/Minerals [Theragran 1 tab PO DAILY 04/04/19 04/04/19 M] Prednisone 10 mg PO DAILY 04/04/19 04/04/19 Rivaroxaban [Xarelto] 15 mg PO DAILY 04/04/19 04/04/19 Vitamin B Complex 1 tab PO DAILY 04/04/19 04/04/19 Cephalexin [Keflex] 500 mg PO BID #12 capsule 04/07/19 Saccharomyces Boulardii [Florastor] 250 mg PO BID #12 capsule 04/07/19 - Allergies Allergies/Adverse Reactions: Allergies Allergy/AdvReac Type Severity Reaction Status Date / Time green pepper Allergy Nausea Verified 04/08/19 19:00 shellfish derived AdvReac Anaphylaxis Verified 04/08/19 18:59 Review of Systems - Constitutional Constitutional: reports: Fatigue, Weakness, Poor appetite - Eyes Eyes: reports: Vision loss, Corrective lenses - Ears, Nose & Throat Ears, Nose & Throat: reports: Nasal discharge (mild bleeding in nasal passages), Nosebleeds, Postnasal drainage, Sore throat, Hoarseness, Bleeding gums (poor dental hygiene, tongue is coated) - Cardiovascular Cariovascular: reports: Edema, Lightheadedness, Syncope, Exertional dyspnea, Decr. exercise tolerance - Respiratory Respiratory: reports: Cough, SOB at rest, SOB with exertion - Gastrointestinal Gastrointestinal: reports: Abdominal distention, Change in bowel habits, Nausea, Reflux/heartburn, Bloating, Poor appetite - Genitourinary Genitourinary: reports: Dysuria, Incontinence, Nocturia - Musculoskeletal Musculoskeletal: reports: Back pain, Limited range of motion, Muscle weakness, Joint swelling - Integumentary Integumentary: reports: Lesions, Dryness, Pigment changes, Hair changes - Neurological Neurological: reports: General weakness, Focal weakness, Headache, Dizziness, Memory problems, Pre-existing deficit, Abnormal gait, Incoordination, Slurred speech - Psychiatric Psychiatric: reports: Depression - Endocrine Endocrine: reports: Intolerance to cold, Intolerance to heat - Hematologic/Lymphatic Hematologic/Lymphatic: reports: Anemia, Bruising, Bleeding tendencies, Recurrent infections, Other (chronically low platelets) - All Other Systems All Other Systems: reports: Reviewed and negative Prior Level of Functionality: up with assistance, walker, was living with her , but failing Exam - Vital Signs Reviewed Vital Signs: Yes Vital Signs: Vital Signs x48h Temp Pulse Pulse Pulse Resp BP BP 04/08/19 20:34 36.9 C 117 H 20 126/73 04/08/19 19:00 95 04/08/19 18:25 36.3 C L 115 H 20 126/67 04/08/19 17:07 110 H 19 04/08/19 14:43 15 124/83 H 04/08/19 13:07 104 H 16 114/102 H Pulse Ox 04/08/19 20:34 04/08/19 19:00 04/08/19 18:25 100 04/08/19 17:07 95 04/08/19 14:43 98 04/08/19 13:07 97 - Physical Exam General Appearance: positive: Alert, Moderate distress, Anxious, Lethargic Eyes Bilateral: positive: PERRL, No lid inflammation, Other (left eyelid closed, but then could open it) ENT: positive: Pharyngeal erythema, Oral lesions (tongue with a white coating, evidence of gum bleeding), Dry mucous membranes Neck: positive: Thyroid nml, No JVD, Stiff neck Respiratory: positive: Chest non-tender, Rhonchi, Other (diminished with low lobe crackles bilaterally) Cardiovascular: positive: No gallop, Irregularly irregular, Tachycardia, Systolic murmur, Decreased pulse(s) Peripheral Pulses: positive: 1+ (absent pulses- pedal BLEs) Abdomen: positive: Nml bowel sounds, Guarding, Hepatomegaly Back: positive: Nml inspection Skin: positive: No rash, Cyanosis, Pallor, Other (nailbeds appear cyanotic to all fingers, cool skin, difficult to obtain a pulse ox, flushed cheeks) Extremities: positive: Pedal edema, Joint swelling, Other (profound 3rd spacing in extremities) Neurologic/Psychiatric: positive: Disoriented to person, Disoriented to place, Disoriented to time, Weakness, Sensory loss, Slurred/abnml speech, Depressed mood/affect Reflexes: Bicep (R): 1+, Bicep (L): 1+ Results - Lab Results Lab results reviewed: Yes Fish Bones: 04/08/19 12:20 04/08/19 12:20 Other Lab Results: Lab Results x24hrs 04/08/19 04/08/19 04/08/19 Range/Units 14:55 12:20 12:20 WBC (4.8-10.8) x10^3/uL RBC (4.20-5.40) 10^6/uL Hgb (12.0-16.0) g/dL Hct (37.0-47.0) % MCV (81.0-99.0) fL MCH (27.0-31.0) pg MCHC (32.0-36.0) g/dL RDW (12.0-15.0) % Plt Count (130-450) 10^3/uL Neut # (Auto) (1.5-6.6) 10^3/uL Lymph # (Auto) (1.5-3.5) 10^3/uL [place] # (Auto) (0.0-1.0) 10^3/uL Eos # (Auto) (0.0-0.7) 10^3/uL Baso # (Auto) (0.0-0.1) 10^3/uL Absolute Nucleated RBC x10^3/uL Nucleated RBC % /100WBC Manual Slide Review WBC Morphology (NORMAL) Platelet Estimate (NORMAL) Platelet Morphology (NORMAL) RBC Morph Micro Appear (NORMAL) VBG pH 7.421 H (7.31-7.41) VBG pCO2 32.2 L (41-51) mmHg VBG pO2 23.3 L (25-47) mmHg VBG HCO3 20.5 L (23-28) mmol/L VBG Total CO2 21.5 L (24-29) mmol/L VBG O2 Saturation 41.7 L (60-80) % VBG Base Excess -3.2 L (-2 - +2) mmol/L Sodium (135-145) mmol/L Potassium (3.5-5.0) mmol/L Chloride (101-111) mmol/L Carbon Dioxide (21-32) mmol/L Anion Gap (6-13) BUN (6-20) mg/dL Creatinine (0.4-1.0) mg/dL Estimated GFR (MDRD) (>89) Glucose (70-100) mg/dL Lactic Acid (0.5-2.2) mmol/L Calcium (8.5-10.3) mg/dL Total Bilirubin (0.2-1.0) mg/dL AST (10-42) IU/L ALT (10-60) IU/L Alkaline Phosphatase (42-121) IU/L Ammonia 10.4 (7-35) umol/L Troponin I (<0.49) ng/mL Troponin I High Sens (2.3-14.8) pg/mL B-Natriuretic Peptide (5-100) pg/mL Total Protein (6.7-8.2) g/dL Albumin (3.2-5.5) g/dL Globulin (2.1-4.2) g/dL Albumin/Globulin Ratio (1.0-2.2) Lipase (22-51) U/L TSH (0.34-5.60) uIU/mL Urine Color YELLOW Urine Clarity CLEAR (CLEAR) Urine pH 5.5 (5.0-7.5) PH Ur Specific [place] 1.025 (1.002-1.030) Urine Protein 30 H (NEGATIVE) mg/dL Urine Glucose (UA) NEGATIVE (NEGATIVE) mg/dL Urine Ketones TRACE (NEGATIVE) mg/dL Urine Occult Blood SMALL H (NEGATIVE) Urine Nitrite NEGATIVE (NEGATIVE) Urine Bilirubin NEGATIVE (NEGATIVE) Urine Urobilinogen 0.2 (NORMAL) (NORMAL) E.U./dL Ur Leukocyte Esterase NEGATIVE (NEGATIVE) Urine RBC 0-5 (0-5) /HPF Urine WBC 0-3 (0-5) /HPF Ur Squamous Epith Cells NONE SEEN (<= Few) Amorphous Sediment Moderate /LPF Urine Bacteria None Seen (None Seen) /HPF Urine Casts 6-10 Hyaline Casts /LPF Ur Microscopic Review INDICATED Urine Culture Comments NOT INDICATED Ethyl Alcohol mg/dL 08/06/19 08/06/19 08/06/19 Range/Units 12:20 12:20 12:20 WBC (4.8-10.8) x10^3/uL RBC (4.20-5.40) 10^6/uL Hgb (12.0-16.0) g/dL Hct (37.0-47.0) % MCV (81.0-99.0) fL MCH (27.0-31.0) pg MCHC (32.0-36.0) g/dL RDW (12.0-15.0) % Plt Count (130-450) 10^3/uL Neut # (Auto) (1.5-6.6) 10^3/uL Lymph # (Auto) (1.5-3.5) 10^3/uL [place] # (Auto) (0.0-1.0) 10^3/uL Eos # (Auto) (0.0-0.7) 10^3/uL Baso # (Auto) (0.0-0.1) 10^3/uL Absolute Nucleated RBC x10^3/uL Nucleated RBC % /100WBC Manual Slide Review WBC Morphology (NORMAL) Platelet Estimate (NORMAL) Platelet Morphology (NORMAL) RBC Morph Micro Appear (NORMAL) VBG pH (7.31-7.41) VBG pCO2 (41-51) mmHg VBG pO2 (25-47) mmHg VBG HCO3 (23-28) mmol/L VBG Total CO2 (24-29) mmol/L VBG O2 Saturation (60-80) % VBG Base Excess (-2 - +2) mmol/L Sodium (135-145) mmol/L Potassium (3.5-5.0) mmol/L Chloride (101-111) mmol/L Carbon Dioxide (21-32) mmol/L Anion Gap (6-13) BUN (6-20) mg/dL Creatinine (0.4-1.0) mg/dL Estimated GFR (MDRD) (>89) Glucose (70-100) mg/dL Lactic Acid 1.8 (0.5-2.2) mmol/L Calcium (8.5-10.3) mg/dL Total Bilirubin (0.2-1.0) mg/dL AST (10-42) IU/L ALT (10-60) IU/L Alkaline Phosphatase (42-121) IU/L Ammonia (7-35) umol/L Troponin I 0.13 (<0.49) ng/mL Troponin I High Sens 142.6 H* (2.3-14.8) pg/mL B-Natriuretic Peptide 445 H (5-100) pg/mL Total Protein (6.7-8.2) g/dL Albumin (3.2-5.5) g/dL Globulin (2.1-4.2) g/dL Albumin/Globulin Ratio (1.0-2.2) Lipase (22-51) U/L TSH (0.34-5.60) uIU/mL Urine Color Urine Clarity (CLEAR) Urine pH (5.0-7.5) PH Ur Specific [place] (1.002-1.030) Urine Protein (NEGATIVE) mg/dL Urine Glucose (UA) (NEGATIVE) mg/dL Urine Ketones (NEGATIVE) mg/dL Urine Occult Blood (NEGATIVE) Urine Nitrite (NEGATIVE) Urine Bilirubin (NEGATIVE) Urine Urobilinogen (NORMAL) E.U./dL Ur Leukocyte Esterase (NEGATIVE) Urine RBC (0-5) /HPF Urine WBC (0-5) /HPF Ur Squamous Epith Cells (<= Few) Amorphous Sediment /LPF Urine Bacteria (None Seen) /HPF Urine Casts /LPF Ur Microscopic Review Urine Culture Comments Ethyl Alcohol mg/dL 04/08/19 04/08/19 04/08/19 Range/Units 12:20 12:20 12:20 WBC 11.4 H (4.8-10.8) x10^3/uL RBC 3.36 L (4.20-5.40) 10^6/uL Hgb 10.1 L (12.0-16.0) g/dL Hct 33.5 L (37.0-47.0) % MCV 99.7 H (81.0-99.0) fL MCH 30.1 (27.0-31.0) pg MCHC 30.1 L (32.0-36.0) g/dL RDW 18.5 H (12.0-15.0) % Plt Count 26 L* (130-450) 10^3/uL Neut # (Auto) 9.9 H (1.5-6.6) 10^3/uL Lymph # (Auto) 0.5 L (1.5-3.5) 10^3/uL [place] # (Auto) 0.9 (0.0-1.0) 10^3/uL Eos # (Auto) 0.0 (0.0-0.7) 10^3/uL Baso # (Auto) 0.0 (0.0-0.1) 10^3/uL Absolute Nucleated RBC 0.00 x10^3/uL Nucleated RBC % 0.0 /100WBC Manual Slide Review Indicated WBC Morphology NORMAL APPEARANCE (NORMAL) Platelet Estimate DECREASED (<130,000) (NORMAL) Platelet Morphology NORMAL APPEARANCE (NORMAL) RBC Morph Micro Appear 2+ POIKILOCYTOSIS (NORMAL) VBG pH (7.31-7.41) VBG pCO2 (41-51) mmHg VBG pO2 (25-47) mmHg VBG HCO3 (23-28) mmol/L VBG Total CO2 (24-29) mmol/L VBG O2 Saturation (60-80) % VBG Base Excess (-2 - +2) mmol/L Sodium 142 (135-145) mmol/L Potassium 4.4 (3.5-5.0) mmol/L Chloride 111 (101-111) mmol/L Carbon Dioxide 15 L (21-32) mmol/L Anion Gap 16.0 H (6-13) BUN 33 H (6-20) mg/dL Creatinine 1.4 H (0.4-1.0) mg/dL Estimated GFR (MDRD) 37 L (>89) Glucose 109 H (70-100) mg/dL Lactic Acid (0.5-2.2) mmol/L Calcium 8.4 L (8.5-10.3) mg/dL Total Bilirubin 1.1 H (0.2-1.0) mg/dL AST 99 H (10-42) IU/L ALT 54 (10-60) IU/L Alkaline Phosphatase 534 H (42-121) IU/L Ammonia (7-35) umol/L Troponin I (<0.49) ng/mL Troponin I High Sens (2.3-14.8) pg/mL B-Natriuretic Peptide (5-100) pg/mL Total Protein 5.3 L (6.7-8.2) g/dL Albumin 2.3 L (3.2-5.5) g/dL Globulin 3.0 (2.1-4.2) g/dL Albumin/Globulin Ratio 0.8 L (1.0-2.2) Lipase 22 (22-51) U/L TSH 13.55 H (0.34-5.60) uIU/mL Urine Color Urine Clarity (CLEAR) Urine pH (5.0-7.5) PH Ur Specific [place] (1.002-1.030) Urine Protein (NEGATIVE) mg/dL Urine Glucose (UA) (NEGATIVE) mg/dL Urine Ketones (NEGATIVE) mg/dL Urine Occult Blood (NEGATIVE) Urine Nitrite (NEGATIVE) Urine Bilirubin (NEGATIVE) Urine Urobilinogen (NORMAL) E.U./dL Ur Leukocyte Esterase (NEGATIVE) Urine RBC (0-5) /HPF Urine WBC (0-5) /HPF Ur Squamous Epith Cells (<= Few) Amorphous Sediment /LPF Urine Bacteria (None Seen) /HPF Urine Casts /LPF Ur Microscopic Review Urine Culture Comments Ethyl Alcohol 6.6 mg/dL - Diagnostic Imaging Results Diagnostic Imaging Results: positive: Final report reviewed Diagnostic Imaging Results Comments: EXAM: CHEST RADIOGRAPHY EXAM DATE: 04/08/2019 11:51 AM IMPRESSION: 1. Right basilar infiltrate or atelectasis possible small right effusion. 2. Left basilar atelectasis or scarring EXAM: CT HEAD EXAM DATE: 04/08/2019 04:29 PM IMPRESSION: A large wedge-shaped hypoattenuation is in right parietal lobe with involvement of both white matter and teague matter and loss of teague-white matter differentiation, concerning for a right MCA territory infarct. (Late acute to subacute stage). No acute intracranial hemorrhage. no midline shift or mass- effect. 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 coli UTI (urinary tract infection) (Chronic) Hx of deep venous thrombosis (Chronic) NSTEMI (non-ST elevated myocardial infarction) (Chronic) BETO (acute kidney injury) (Acute) Endometrial cancer (Chronic) Pancytopenia due to chemotherapy (Chronic) Anemia (Chronic) Acute right MCA stroke (Acute)- Noted on this admission after a head CT was completed for her presenting complaint of syncope and collapse - Head CT shows a large wedge shaped hypoattenuation in the right parietal lobe concerning for a right MCA infarct - Head MRI, echo, statin, ordered Syncope and collapse (Acute)- Work up ordered; head MRI, echocardiogram, telemetry, carotid dopplers Sepsis (Acute)- Based on tachycardia, altered mental status, chest x-ray with right infiltrates, low platelets, BETO, increased RR, and WBC count - Differential includes DIC, but no labs are able to be obtained due to poor access - ED provider attempted in the right neck without success Right lower lobe pneumonia (Acute)- New right lobe infiltrated noted on imaging - Antibiotic choice changed to Cefepime, possibly will add another agent Pyelonephritis (Acute)- Patient had hydronephrosis and hydroureter on her last abdominal imaging which was likely caused by a retroperitineal mass which was compressing her ureter - Also with an unresolved UTI - Patient admits to bilateral flank pain and seems to have tenderness with palpation Acute metabolic encephalopathy (Acute)- This was first noted after the patient had a fall at home, luckily landing on the bed and in the presence of her , which led to him calling EMS - Continues and an MCA infarct is noted on head imaging Retroperitoneal mass (Acute)- Noted on 04/06 abdominal imaging - Repeat abdominal/pelvis CT without contrast given her BETO - Worrisome that her sepsis may be from her abdomen Thrombocytopenia (Chronic)- Trending down platelets, now only 26 - Evidence of bleeding, but nothing acute on exam - scattered bruising to BLEs Liver masses (Chronic)- multiple in nature noted on last abdominal imaging Pulmonary nodules (Chronic)- noted on last imaging, stable E. coli UTI (urinary tract infection) (Chronic)- recurrent, was sent home on Keflex to be continued at home from her last hospital stay on 04/07 - new urine sample sent Hx of deep venous thrombosis (Chronic)- status post IVC filter, previously on Xarelto which was stopped for low platelets NSTEMI (non-ST elevated myocardial infarction) (Chronic)- mild elevation in troponins - Unable to obtain new labs due to difficult access BETO (acute kidney injury) (Acute)- Creatinine is 1.4, which is near her new baseline of 1.2, but likely due to acute illness or sepsis Endometrial cancer (Chronic)- primary cancer, sees Dr. Mauricio- [facility] Pancytopenia due to chemotherapy (Chronic)- unchanged Anemia (Chronic)- evidence of bleeding, H/H 10.1/33.5, elevated MCV of 99.7 Elevated TSH- has not been checked before, now 13.55 - No access, but will order Free T3, T4 and start synthroid Elevated troponin- 0.13, no complaints of chest pain - difficult to determine actual cause in the setting of acute illness, low platelets, and BETO * Spoke with Dr. Jimenez who just discharged this patient and confirmed she had no neuro-deficits at the time of her discharge on 04/07. - Ordering an anesthesia consult, ordered a central line - Labs are still pending (not able to draw) and include; follow up labs to help with ruling out DIC, sepsis, and CBC for active bleeding - Obtaining abdominal/pelvis CT to evaluate for retroperitoneal mass, or other bleeding - Frequent nursing care to be watchful of s/s of active bleeding, hypotension, or chest pain - Obtain an EKG, start Synthroid, and check Free T3 & T4 Core Measures - Anticipated LOS I expect patient to be DC'd or transferred within 96 hours.: Yes - DVT/VTE - Prophylaxis VTE/DVT Device ordered at admit?: Yes VTE/DVT Prophylaxis med ordered at admit?: No Not Ordered - Medical Reason: Contraindicated - Stroke - Rehab Assessment Rehab services assessment to be ordered?: Yes - AMI - Statin at Admit Aspirin Prescribed on Admit: No Not Ordered - Medical Reason: Contraindicated
[2019-04-08] MEDS ORDERED: ATORVASTATIN 40 MG TABLET PO SCH (23:02)
--- NOTE | 2019-04-08 23:17 | CT Report ---
Reason: retroperitoneal mass, bleeding, sepsis Procedure Date: 04/08/2019 Accession Number: [id number] / [id number] Procedure: CT - Abdomen/Pelvis WO CPT Code: FULL RESULT: EXAM: CT ABDOMEN AND PELVIS EXAM DATE: 04/08/2019 10:20 PM. CLINICAL HISTORY: Retroperitoneal mass. Bleeding. Sepsis. COMPARISONS: ABDOMEN/PELVIS W/WO 04/06/2019 8:46 AM. TECHNIQUE: Routine helical CT imaging was performed through the abdomen and pelvis. IV contrast: None. Enteric contrast: No. Reconstructions: Coronal and sagittal. In accordance with CT protocol optimization, one or more of the following dose reduction techniques were utilized for this exam: automated exposure control, adjustment of mA and/or KV based on patient size, or use of iterative reconstructive technique. FINDINGS: Lung Bases: Pleural effusions, right greater than left, larger than prior exam. Right lower lobe atelectasis/infiltrate. Liver: Stable large low density abnormalities. Gallbladder/Bile Ducts: Unremarkable. Spleen: Normal. Pancreas: Normal. Adrenal Glands: Normal. Kidneys: Unremarkable left kidney and ureter. Stable right hydronephrosis and hydroureter down to the level of the mid pelvis, extending past a right paracaval mass, with etiology of abrupt termination of the hydroureter not apparent. Peritoneal Cavity/Bowel: Rectosigmoid anastomosis noted. Stable lower right paracaval 3.5 x 4.1 cm soft tissue mass. 5.8 x 3.8 cm cystic abnormality anterior to the right common iliac artery appears larger. Mild ascites, larger than prior No free air. No masses or acute inflammatory process. Nonvisualized appendix. Pelvic Organs: Hysterectomy. Unremarkable contrast-filled bladder. Vasculature: No aortic aneurysm. Mild atherosclerotic calcification. IVC filter in place. Bones: No significant abnormality. Other: Stable roughly 2 x 4 cm lobular soft tissue mass in the deep subcutaneous fat of the right lower quadrant likely related to prior laparoscopic surgical site. IMPRESSION: 1. Larger pleural effusions, right greater than left. 2. Stable liver low densities. 3. Stable right hydronephrosis and hydroureter down to the mid pelvis, unclear etiology. 4. Mild ascites, larger than prior. 5. Stable right lower quadrant abdominal wall lobular mass, lower right paracaval soft tissue mass, and slightly larger right pre-iliac cystic mass. RADIA
--- NOTE | 2019-04-09 02:20 | CONSULTATION NOTE ---
Consultation Report: Called to place PICC line on patient with difficult IVs. Pt unable to sign consent due to confused state. Right arm prepped in sterile fashion, sterile drape, gown, gloves, mask. Attempted several times using ultrasound and was able to view numerous small veins but unable to obtain adequate flow when cannulated. Moved to left side and attempted same procedure using sterile technique and again was unable to obtain an adequate vein. After patient became semi combative I stopped. Right groin was prepped with chlorohexidine, sterile drape, mask, gloves, gown. Again, using ultrasound I was able to see the femoral vein and cannulated it several times but was unable to obtain adequate flow. I attempted placing the wire once and it wouild not advance even though blood was flowing. I finally abandoned the procedure. I prepped left upper arm and was able to place a long 20 ga IV and obtained the needed blood for the lab, secured it and dressed it.
[2019-04-09] MEDS ORDERED: VANCOMYCIN INJ 1 GM, VANCOMYCIN INJ 500 MG in SODIUM CHLORIDE 0.9% 500 ML IV SCH ×2 (03:00→18:00)
[2019-04-09 03:40] LABS: BASOPHILS % (AUTO) 0.1 %; EOSINOPHILS % (AUTO) 0.1 %; HGB - HEMOGLOBIN 9.8 g/dL (12.0-16.0); LYMPHOCYTES % (AUTO) 3.6 %; MEAN CORPUSCULAR HEMOGLOBIN 30.8 pg (27.0-31.0); MEAN CORPUSCULAR HGB CONC 31.1 g/dL (32.0-36.0); MEAN CORPUSCULAR VOLUME 99.1 fL (81.0-99.0); MONOCYTES % (AUTO) 8.9 %; NEUTROPHILS % (AUTO) 86.4 %; RED BLOOD COUNT 3.18 10^6/uL (4.20-5.40); RED CELL DISTRIBUTION WIDTH 18.3 % (12.0-15.0); WHITE BLOOD COUNT 13.9 x10^3/uL (4.8-10.8)
[2019-04-09 03:45] LABS: PLT - PLATELET COUNT 13 10^3/uL (130-450)
[2019-04-09 03:47] LABS: INR 1.8 (0.8-1.2); PT - PROTHROMBIN TIME 19.6 secs (9.9-12.6)
[2019-04-09 03:48] LABS: ABNORMAL LYMPHS % (MANUAL) 0 %; BAND NEUTROPHILS % (MANUAL) 0 %
[2019-04-09 03:53] LABS: FIBRINOGEN 349 mg/dL (220-496)
[2019-04-09 03:54] LABS: ALBUMIN 2.4 g/dL (3.2-5.5); ALBUMIN/GLOBULIN RATIO 0.9 (1.0-2.2); BILIRUBIN,TOTAL 1.3 mg/dL (0.2-1.0); CALCIUM 8.3 mg/dL (8.5-10.3); CREATININE 1.4 mg/dL (0.4-1.0); MAGNESIUM 2.3 mg/dL (1.7-2.8); TOTAL PROTEIN 5.1 g/dL (6.7-8.2)
[2019-04-09 04:00] LABS: PARTIAL THROMBOPLASTIN TIME 24.5 secs (24.9-33.3)
[2019-04-09 04:06] LABS: LYMPHOCYTES # (MANUAL) 0.4 10^3/uL (1.5-3.5); LYMPHOCYTES % (MANUAL) 3 %; MONOCYTES # (MANUAL) 0.4 10^3/uL (0.0-1.0)
[2019-04-09 04:07] LABS: RBC MORPHOLOGY (MULTIPLE) 1+ ANISOCYTOSIS (NORMAL)
[2019-04-09 04:07] LABS: D-DIMER > 1050.0 ng/mL (200.0-255.0)
[2019-04-09 04:08] LABS: DIFFERENTIAL COMMENT MANUAL DIFFERENTIAL; PLATELET ESTIMATE, MANUAL DECREASED (<130,000) (NORMAL); PLATELET MORPHOLOGY NORMAL APPEARANCE (NORMAL)
[2019-04-09] MEDS ORDERED: ACETAMINOPHEN 1,000 MG/100 ML 100 ML IV PRN (04:30)
[2019-04-09 04:43] LABS: TROPONIN I 0.63 ng/mL (<0.49)
[2019-04-09] MEDS: SODIUM CHLORIDE FLUSH 0.9% 10 ML SYRINGE IVP SCH ×2 (05:13→06:27)
[2019-04-09] MEDS: HYDROCORTISONE SUCCINATE 100 MG/2 ML VIAL IVP SCH ×2 (06:27→13:50)
[2019-04-09] MEDS ORDERED: LEVOTHYROXINE 25 MCG TABLET PO SCH (07:00)
[2019-04-09] MEDS: SODIUM CHLORIDE 0.9% 1,000 ML IV SCH ×2 (08:54→13:52)
[2019-04-09] MEDS: CEFEPIME 2 GM in SODIUM CHLORIDE 0.9% MINIBAG 100 ML IV SCH (08:55)
[2019-04-09] MEDS: METOPROLOL SUCCINATE 50 MG TABLET PO SCH (08:58)
[2019-04-09] MEDS: POLYETHYLENE GLYCOL 3350 17 GM PACKET PO SCH ×2 (08:59→09:06)
--- NOTE | 2019-04-09 12:34 | DISCHARGE SUMMARY ---
Discharge Summary Admit Date: 04/08/19 Discharge Date: 04/09/19 Discharging Provider: Yelena Cleaning MD Primary Care Provider: Fareed Carter MD Code Status: Attempt Resuscitation Condition at Discharge: Serious Discharge Disposition: 02 Transfer Acute Care Hosp Discharge Facility Name: [facility] - DIAGNOSES Discharge Diagnoses with Status of Each Condition: 1. acute right middle cerebral artery stroke 2. Metabolic encephalopathy 3. Right lower lobe atelectasis vs. infiltrate, sepsis not felt to be present 4. Hydronephrosis secondary to retroperitoneal mass/uterine cancer 5. UTI present on admission 6. Stage IV uterine cancer with metastatic disease to liver ad possibly to lung 7. Thrombocytopenia 8. History of DVT, status post IVC filter 9. Abnormal troponins 10. Chronic kidney disease stage III with mild acute exacerbation 11. Elevated TSH to 13.5 12. Macrocytic anemia, chronic - HPI History of Present Illness: Janina Thurman is a very ill appearing 69-year old female with a past medical history of endometrial cancer with metastasis to the liver, on chemotherapy, pancytopenia, CAD with NSTEMI in 03/2018 requiring coronary stents, recent pleural effusion which was tapped at the , hypertension, hyperlipidemia, diabetes mellitus type 2, DVT, status post vena cava filter, previously on Xarelto, pneumocystitis carinii pneumonia, recurrent UTIs, electrolyte disturbance, and depression. Since being discharged on 04/07/2019 the patient has felt week with mild dysuria. Her , Edgar is present for her initial exam and explained that she had been up in the night to use the bathroom, and collapsed on the bed. Luckily he was right by her side so this was a witnessed fall. He described her body going "limp", and she appeared to have problems speaking, so this prompted him to call 911. When EMS arrived, the patient was minimally responsive, but confused. After arriving in the ED the patient was stabilized with IV fluids, but still had confusion which was a change from her normal so a head CT was done showing an acute to sub-acute right MCA infarct with a wedge shaped hypoattenuation. On my exam, she is confused, has left sided weakness that is subtle, would not open her left eye unless prompted and complained of a right sided headache that is improved. * I explained to Edgar, her that we have limited resources here at [facility], but he still wanted her admitted to our service. I asked about code status since her condition may become worse, but he confirmed that he would like all efforts made to extend her life and she is to remain a FULL code. Labs showed an elevated WBC count of 11.4, H/H of 10.1/33.5, MCV of 99.7, platelets 26, sodium 142, potassium 4.4, BUN 33, creatinine of 1.4, GFR of 37, glucose 109, lactic acid 1.8, bili 1.1, alk phos 534, AST 99, AST 54, TSH 13.55, alcohol 6.6, troponin 0.13, high sens troponin 142.6, BNP 445, VBG pH of 7.42, ammonia 10.4, and a clean UA. She was originally admitted to observation, but changed to inpatient given the grave clinical condition and her lack of IV access and venipuncture sites which may possibly delay her care. Anesthesia has been consulted for a central line placement and I have spent greater than 1 hour 1:1, and 2-3 hours in chart preparation/billing. Staff has been updated and a detailed report was given to cristi CHINCHILLA. - CONSULTS | PROCEDURES Procedures: 1. chest x-ray with right basilar infiltrate or atelectasis, possible small right pleural effusion. Left basilar atelectasis or scarring. 2. A large wedge shaped hypoattenuation right parietal lobe, involving both teague matter and white matter concerning for right middle cerebral artery territory infarct, late acute to subacute stage. No hemorrhage. Age-related microangiopathic changes surrounding the trigone of left lateral ventricle. No midline shift. 3. Abdomen pelvis CT scan. Pleural effusions, right greater than left. Larger than prior exam April 06. Liver was stable large low-density lesions. Stable right hydronephrosis and hydroureter down to the level of the mid pelvis, extending past a right paracaval mass, with the etiology of abrupt termination of the hydroureter not present. Rectosigmoid anastomosis noted. Stable lower right paracaval soft tissue mass. Cystic abnormality anterior to the right common iliac appears larger. Mild ascites. Unremarkable contrast filled bladder. Stable lobular soft tissue mass in the deep subcutaneous fat of the right lower quadrant related to prior laparoscopic surgical site. 4. Blood culture negative after 1 day 5. Troponin #1 was 0.13, troponin #2 is 0.63. Unable to get third draw. 6. TSH 13. Free T4 0.9, free T3 1.52 - HOSPITAL COURSE Hospital Course: the patient presented as acutely encephalopathic after being discharged from the hospital the day before. Her brought her back to the emergency room stating that her urinary tract infection was worse. There were no fevers, no chills, no focal neurological signs but just a diffuse worsening in alertness, decreased p.o. intake. In the emergency room, that morning, temperature was 36.9. Heart rate 108. Blood pressure 123/76. Respirations 22. 99% on room air. She was in the emergency room for several hours. She was evaluated for electrolyte abnormalities, dehydration, incompletely treated UTI, etc. Chest x- ray was minimally abnormal. The right lower lobe atelectasis could be interpreted as infiltrate. She has a chronically elevated white cell count, even even though she was not hypoxic or febrile, she was empirically treated for pneumonia with ceftriaxone. She received IV fluids. But did not seem to be improving. Later in the afternoon (after presenting since the morning), a CT of the head was done. CT showed a large wedge infarct. As such the diagnosis in the late afternoon was now acute stroke with possible pneumonia. Continued hydronephrosis and needing complete treatment for her previous UTI for which she been admitted. Her previous admission on April 03, with discharged April 07, showed her to have E. coli. It was sensitive to cefazolin, ceftriaxone. She received ceftriaxone in the previous hospital admission. Sent home on Keflex which she was still taking. With this admission she was in treated empirically with cefepime. In spite of IV fluids and IV antibiotics the patient did not improve. Her encephalopathy seems to be worsening. Her platelets in December 2017 were 108. March 28 and she was 65-69. With her admission for UTI she dropped down to 45. With this admission she was 34 in the emergency room. Then she dropped down to 26 and today was 13. Repeat troponins were also done and her troponin went from 0.1 to 0.63. We do not feel that she is having an WI but it is concerning that she is dropping her platelets, has encephalopathy, and has a wedge infarct on MRI as well as mild rise in troponins. EKG is without change. She continues to be encephalopathic and weakly repeats, "help me, help me" but can't tell us what she needs. Her initially stated on admission, when offered a transfer possibility, that he wanted her to remain here. Today, I repeatedly stressed that we are a critical access hospital and we have limited specialty treatment here. We also do not have specialty consultants here. As such, he became amenable to her being transferred. We initially contacted Samanta because her oncologist is through [facility]. However they have no beds. We spoke to them twice and Transfer Corrdinator Yumiko said it would be indefinite time before a bed was available. We then approached Cally because that was his next request. [facility] has eventually accepted her in transfer through Dr. Kilgore, ICU. She has received steroids for the possibility of ITP. However creatinine has been stable. Could she have TTP? Could all of this just be from her stroke? It is understood that she will be transferred and get neurology consult, probabl e Cardiology consult and Oncology consult. - ALLERGIES Allergies/Adverse Reactions: Allergies Allergy/AdvReac Type Severity Reaction Status Date / Time green pepper Allergy Nausea Verified 04/08/19 19:00 shellfish derived AdvReac Anaphylaxis Verified 04/08/19 18:59 - MEDICATIONS Home Medications: Ambulatory Orders Medication Instructions Recorded Confirmed Ascorbic Acid [Vitamin C] 1,000 mg PO DAILY 04/04/19 04/04/19 Atorvastatin [Lipitor] 40 mg PO QPM 04/04/19 04/04/19 Calcium Carbonate 500 mg PO DAILY 04/04/19 04/04/19 Cholecalciferol (Vitamin D3) 2,000 unit PO DAILY 04/04/19 04/04/19 [Vitamin D3] Cimetidine 200 mg PO DAILY 04/04/19 04/04/19 Iron Booster Complex 1 tab PO DAILY 04/04/19 04/04/19 Lisinopril 10 mg PO DAILY 04/04/19 04/04/19 Magnesium 500 mg PO DAILY 04/04/19 04/04/19 Metoprolol Succinate [Toprol Xl] 50 mg PO DAILY 04/04/19 04/04/19 Multivitamin W/Minerals [Theragran 1 tab PO DAILY 04/04/19 04/04/19 M] Prednisone 10 mg PO DAILY 04/04/19 04/04/19 Rivaroxaban [Xarelto] 15 mg PO DAILY 04/04/19 04/04/19 Vitamin B Complex 1 tab PO DAILY 04/04/19 04/04/19 Cephalexin [Keflex] 500 mg PO BID #12 capsule 04/07/19 Saccharomyces Boulardii [Florastor] 250 mg PO BID #12 capsule 04/07/19 Triamterene/Hydrochlorothiazid 1 cap PO DAILY 04/09/19 04/09/19 [Triamterene-Hctz 37.5-25 mg Cp] - PHYSICAL EXAM AT DISCHARGE General Appearance: positive: Moderate distress (repeatedly, with a low, weak voice, states "help me" but can't say if she's in pain.), Lethargic Eyes Bilateral: positive: PERRL ENT: positive: Dry mucous membranes Neck: positive: No JVD. negative: Stiff neck, Carotid bruit Respiratory: positive: Chest non-tender, Other (unlabored, shallow, respirations, no struggle to breath) Cardiovascular: positive: Regular rate & rhythm, Tachycardia, Systolic murmur. negative: Gallop/S4, Friction rub Peripheral Pulses: positive: 0 Abdomen: positive: Tenderness (diffuse and mild, but generalized. Seems to be worse in RLQ and suprapubic area without rebound, guarding. Hypoactive bowels sounds.) Skin: positive: Other (petechiea of fingers and toes, bruises on arms, legs, cool to touch, bottom of right foot with ?mottling) Extremities: positive: Non-tender, Full ROM, Pedal edema Neurologic/Psychiatric: positive: Disoriented to person, Disoriented to place, Disoriented to time, Weakness, Slurred/abnml speech, Other (she has a waxing and waning left body deficit. She is not always consistently weak on her left side and her face is diffusely slack without facial droop. Exam does not match wedge infarct on CT.) - LABS Result Diagrams: 04/09/19 03:30 04/09/19 02:00
[2019-04-09 14:46] VITALS: BP 128/78
--- NOTE | 2019-04-09 16:06 | Discharge Plan ---
Discharge Plan Problem Reviewed?: Yes Disposition: 02 Transfer Acute Care Hosp Condition: Serious No Smoking: If you smoke, Please STOP! Call for help. Follow-up with: Fareed Carter MD [Primary Care Provider] -
== END 2019-04-09 14:40 | disposition short-term general hospital (02) | DRG 64 ==
LOC: EDUNIT# → ED 10:36 → MS2 17:43 → OBSVTOIN 23:01 → ICU 04-09 08:49
PROVIDERS: ADMIT Nurse Practitioner; ATTEND Specialist
DX: I63.9 Cerebral infarction, unspecified (principal); A41.9 Sepsis, unspecified organism; J18.1 Lobar pneumonia, unspecified organism; N10 Acute pyelonephritis; G93.41 Metabolic encephalopathy; R19.00 Intra-abdominal and pelvic swelling, mass and lump, unspecified site; D61.810 Antineoplastic chemotherapy induced pancytopenia; D69.3 Immune thrombocytopenic purpura; C78.7 Secondary malignant neoplasm of liver and intrahepatic bile duct; N13.39 Other hydronephrosis; C54.1 Malignant neoplasm of endometrium; D69.6 Thrombocytopenia, unspecified; R91.8 Other nonspecific abnormal finding of lung field; N17.9 Acute kidney failure, unspecified; J90 Pleural effusion, not elsewhere classified; E11.22 Type 2 diabetes mellitus with diabetic chronic kidney disease; I12.9 Hypertensive chronic kidney disease with stage 1 through stage 4 chronic kidney disease, or unspecified chronic kidney disease; N18.3 Chronic kidney disease, stage 3 (moderate); G81.94 Hemiplegia, unspecified affecting left nondominant side; J98.11 Atelectasis; R79.89 Other specified abnormal findings of blood chemistry; T45.1X5A Adverse effect of antineoplastic and immunosuppressive drugs, initial encounter; R94.6 Abnormal results of thyroid function studies; I25.10 Atherosclerotic heart disease of native coronary artery without angina pectoris; E78.5 Hyperlipidemia, unspecified; F32.9 Major depressive disorder, single episode, unspecified; R10.84 Generalized abdominal pain; R55 Syncope and collapse; B96.20 Unspecified Escherichia coli [E. coli] as the cause of diseases classified elsewhere; E11.42 Type 2 diabetes mellitus with diabetic polyneuropathy; F03.90 Unspecified dementia, unspecified severity, without behavioral disturbance, psychotic disturbance, mood disturbance, and anxiety; K21.9 Gastro-esophageal reflux disease without esophagitis; N30.20 Other chronic cystitis without hematuria; R32 Unspecified urinary incontinence; R35.1 Nocturia; J32.9 Chronic sinusitis, unspecified; M19.90 Unspecified osteoarthritis, unspecified site; H54.7 Unspecified visual loss; R26.89 Other abnormalities of gait and mobility; R47.81 Slurred speech; Y92.531 Health care provider office as the place of occurrence of the external cause; Z79.52 Long term (current) use of systemic steroids; Z79.899 Other long term (current) drug therapy; I25.2 Old myocardial infarction; Z86.718 Personal history of other venous thrombosis and embolism; Z87.01 Personal history of pneumonia (recurrent); Z87.440 Personal history of urinary (tract) infections; Z90.710 Acquired absence of both cervix and uterus; Z95.5 Presence of coronary angioplasty implant and graft
CPT/HCPCS: 36415; 51701; 70450; 71045; 74176; 80053; 81001; 81241; 82140; 82803; 83605; 83690; 83735; 83880; 84439; 84443; 84481; 84484; 85025; 85240; 85379; 85384; 85520; 85610; 85651; 85730; 86140; 87040; 93005; 96361; 96365; 96375; 99285; A9270; G0378; J3370; 80202; 80320; 81003; 83615; 86850; 86900; 86901; 87086